=== PATIENT | female | born 1955 | race Caucasian/White ===

== ENCOUNTER 2021-02-04 13:25 | Inpatient (IN) | payer MEDICARE, BC ==
[2021-02-04] MEDS ORDERED: SODIUM CHLORIDE 0.9% 1,000 ML IV STA (14:31)
[2021-02-04 15:03] LABS: Basophils % (A) 0 %; Eosinophils % (A) 0 %; HCT 37.8 % (34.0-46.0); Lymphocytes # (A) 1.4 k/uL (1.0-4.8); Lymphocytes % (A) 14 %; MCH 31.9 pg (25.0-35.0); MCHC 31.8 g/dL (31.0-37.0); MCV 100.3 fL (80.0-100.0); Mean Platelet Volume 7.2; Monocytes # (A) 0.5 k/uL (0-1.0); Monocytes % (A) 5 %; Neutrophils % (A) 80 %; Platelet Count 322 k/uL (150-450); RBC 3.77 m/uL (3.80-5.40); RDW 12.8 % (11.5-15.5); WBC 10.1 k/uL (3.8-10.6)
[2021-02-04 15:14] LABS: ALT 29 U/L (4-34); AST 34 U/L (14-36); Acetaminophen <10.0 ug/mL; African American GFR (CKD) 78 (>60 ml/min/1.73 sqM); Albumin 3.8 g/dL (3.5-5.0); Alcohol <10 mg/dL; Alkaline Phosphatase 115 U/L (38-126); Anion Gap 11 mmol/L; Blood Urea Nitrogen 13 mg/dL (7-17); Calcium 8.8 mg/dL (8.4-10.2); Carbon Dioxide 17 mmol/L (22-30); Chloride 107 mmol/L (98-107); Glucose 92 mg/dL (74-99); Magnesium 2.2 mg/dL (1.6-2.3); Non-African American GFR(CKD) 68 (>60 ml/min/1.73 sqM); Potassium 3.8 mmol/L (3.5-5.1); Salicylate <1.0 mg/dL; Sodium 135 mmol/L (137-145); Total Bilirubin 0.8 mg/dL (0.2-1.3); Total Protein 6.7 g/dL (6.3-8.2)
--- NOTE | 2021-02-04 16:04 | ED ---
General Adult HPI - General Chief complaint: Overdose Stated complaint: Possible overdose on medication Time Seen by Provider: 02/04/21 13:50 Source: patient, family, RN notes reviewed Mode of arrival: wheelchair Limitations: physical limitation - History of Present Illness Initial comments: This a 65 year old female presents emergency Department with daughter chief complaint of drug overuse. Patient states that she has been taking more medication than she should've last couple months. She primary has been using her Prozac and Lamictal which she's not exactly sure of how much she's been taking and what she's been taking. She states she's been taken it because it was giving her the feeling of getting high. She has a long history of drug abuse. Patient states she's not been drinking alcohol recently. She states she's been abusing drugs for this reason. Denies any self-harm. Patient denies suicidal or homicidal she states that she is very shaky, unsteady on her feet unable to ambulate now. - Related Data Home Medications Medication Instructions Recorded Confirmed Atorvastatin [Lipitor] 80 mg PO DAILY 02/04/21 02/04/21 FLUoxetine HCL [PROzac] 40 mg PO DAILY 02/04/21 02/04/21 OLANZapine [ZyPREXA] 5 mg PO HS 02/04/21 02/04/21 Promethazine [Phenergan] 25 mg PO Q8H PRN 02/04/21 02/04/21 Topiramate [Topamax] 50 mg PO DAILY 02/04/21 02/04/21 buPROPion SR [Wellbutrin SR] 150 mg PO BID 02/04/21 02/04/21 lamoTRIgine [LaMICtal] 200 mg PO DAILY 02/04/21 02/04/21 traZODone HCL 50 mg PO HS PRN 02/04/21 02/04/21 Allergies Allergy/AdvReac Type Severity Reaction Status Date / Time codeine AdvReac Itching Verified 02/04/21 15:00 Review of Systems ROS Statement: Those systems with pertinent positive or pertinent negative responses have been documented in the HPI. ROS Other: All systems not noted in ROS Statement are negative. Past Medical History Past Medical History: COPD, Myocardial Infarction ([place]), Pneumonia Additional Past Medical History / Comment(s): Bipolar disorder, alcoholism, chronic anxiety, chronic depression Last Myocardial Infarction Date:: 05/2016 History of Any Multi-Drug Resistant Organisms: None Reported Past Surgical History: Back Surgery, Heart Catheterization With Stent, Pacemaker Additional Past Surgical History / Comment(s): Back surgery for lumbar disc disease, left wrist surgery, Past Anesthesia/Blood Transfusion Reactions: No Reported Reaction Date of Last Stent Placement:: 05/2016 Type of Cardiac Device: Permanent Pacemaker Device Placement Date:: 08/2016 Past Psychological History: Anxiety, Bipolar, Depression Smoking Status: Current every day smoker Past Alcohol Use History: Abuse, Daily Past Drug Use History: Cocaine, Prescription Drug Abuse - Past Family History Daughter(s) Additional Family Medical History / Comment(s): none Father Family Medical History: Unable to Obtain Mother Family Medical History: Hypertension General Exam General appearance: alert, in no apparent distress Head exam: Present: atraumatic, normocephalic, normal inspection Eye exam: Present: normal appearance, PERRL, EOMI. Absent: scleral icterus, conjunctival injection, periorbital swelling ENT exam: Present: normal exam, normal oropharynx, mucous membranes moist Neck exam: Present: normal inspection, full ROM. Absent: tenderness, meningismus, lymphadenopathy Respiratory exam: Present: normal lung sounds bilaterally. Absent: respiratory distress, wheezes, rales, rhonchi, stridor Cardiovascular Exam: Present: regular rate, normal rhythm, normal heart sounds. Absent: systolic murmur, diastolic murmur, rubs, gallop, clicks Neurological exam: Present: alert, oriented X3, CN II-XII intact, reflexes normal, other (Tremulous). Absent: motor sensory deficit Psychiatric exam: Present: anxious Skin exam: Present: warm, dry, intact, normal color. Absent: rash Course Vital Signs 02/04/21 02/04/21 02/04/21 13:27 17:25 18:22 Temperature 97.4 F L Pulse Rate 60 60 60 Pulse Rate [ Right Supine Pulse Oximetery ] Respiratory 18 16 18 Rate Blood Pressure 84/31 72/57 94/63 Blood Pressure [Right Arm Supine] O2 Sat by Pulse 93 L 95 95 Oximetry 02/04/21 02/04/21 02/05/21 20:00 22:00 00:00 Temperature 98.6 F 99.1 F Pulse Rate Pulse Rate [ 84 60 62 Right Supine Pulse Oximetery ] Respiratory 20 20 20 Rate Blood Pressure Blood Pressure 88/68 80/50 82/64 [Right Arm Supine] O2 Sat by Pulse 96 97 96 Oximetry 02/05/21 02/05/21 02/05/21 01:24 02:00 04:00 Temperature 99.4 F Pulse Rate Pulse Rate [ 60 60 60 Right Supine Pulse Oximetery ] Respiratory 20 20 20 Rate Blood Pressure Blood Pressure 85/59 88/60 [Right Arm Supine] O2 Sat by Pulse 96 97 Oximetry EKG Findings - EKG Comments: EKG Findings:: EKG performed at 13:38 atrial paced rhythm with a rate of 68 IN 172 QRS 88 QT / QTC 442/442 Medical Decision Making - Medical Decision Making 65-year-old presented emergency department for medication overuse. Patient is attempting to get high -using her drugs. Patient continues to have unsteady gait, shakiness, persistent hypotension. Patient we given fluid bolus, will be admitted for further evaluation and treatment with close monitoring, psychiatric evaluation. - Lab Data Result diagrams: 02/04/21 14:59 02/04/21 14:59 Lab Results 02/04/21 02/04/21 02/04/21 Range/Units 14:59 14:59 16:58 WBC 10.1 (3.8-10.6) k/uL RBC 3.77 L (3.80-5.40) m/uL Hgb 12.0 (11.4-16.0) gm/dL Hct 37.8 (34.0-46.0) % MCV 100.3 H (80.0-100.0) fL MCH 31.9 (25.0-35.0) pg MCHC 31.8 (31.0-37.0) g/dL RDW 12.8 (11.5-15.5) % Plt Count 322 (150-450) k/uL MPV 7.2 Neutrophils % 80 % Lymphocytes % 14 % Monocytes % 5 % Eosinophils % 0 % Basophils % 0 % Neutrophils # 8.0 H (1.3-7.7) k/uL Lymphocytes # 1.4 (1.0-4.8) k/uL Monocytes # 0.5 (0-1.0) k/uL Eosinophils # 0.0 (0-0.7) k/uL Basophils # 0.0 (0-0.2) k/uL Sodium 135 L (137-145) mmol/L Potassium 3.8 (3.5-5.1) mmol/L Chloride 107 (98-107) mmol/L Carbon Dioxide 17 L (22-30) mmol/L Anion Gap 11 mmol/L BUN 13 (7-17) mg/dL Creatinine 0.89 (0.52-1.04) mg/dL Est GFR (CKD-EPI)AfAm 78 (>60 ml/min/1.73 sqM) Est GFR (CKD-EPI)NonAf 68 (>60 ml/min/1.73 sqM) Glucose 92 (74-99) mg/dL Calcium 8.8 (8.4-10.2) mg/dL Magnesium 2.2 (1.6-2.3) mg/dL Total Bilirubin 0.8 (0.2-1.3) mg/dL AST 34 (14-36) U/L ALT 29 (4-34) U/L Alkaline Phosphatase 115 (38-126) U/L Total Protein 6.7 (6.3-8.2) g/dL Albumin 3.8 (3.5-5.0) g/dL Salicylates <1.0 mg/dL Acetaminophen <10.0 ug/mL Serum Alcohol <10 mg/dL Coronavirus (PCR) Not Detected (Not Detectd) Disposition Clinical Impression: Selective serotonin re-uptake inhibitor overdose, Hypotension, Unsteady gait, Coarse tremors Disposition: ADMITTED IP TO THIS [facility] Condition: Fair Time of Disposition: 16:58
[2021-02-04] MEDS ORDERED: SODIUM CHLORIDE 0.9% 1,000 ML IV ONE (16:32)
[2021-02-04] MEDS ORDERED: NALOXONE 0.4 MG/ML 1 ML VIAL IV PRN (16:58)
--- NOTE | 2021-02-04 17:24 | XR ---
EXAMINATION TYPE: XR chest 2V DATE OF EXAM: 02/04/2021 COMPARISON: 01/20/2019 HISTORY: Chest pressure TECHNIQUE: 2 views FINDINGS: Heart is normal. Lungs are clear of consolidation. There are no hilar masses. Costophrenic angles are clear. There is left axillary pacemaker. IMPRESSION: No active cardiopulmonary disease. No adverse change.
[2021-02-04] MEDS: SODIUM CHLORIDE 0.9% 1,000 ML IV SCH (18:03)
[2021-02-05] MEDS: SODIUM CHLORIDE 0.9% 1,000 ML IV SCH ×4 (02:00→20:32)
[2021-02-05] MEDS ORDERED: SODIUM CHLORIDE 0.9% 500 ML 500 ML IV ONE (05:36)
[2021-02-05] MEDS ORDERED: PROMETHAZINE 25 MG TAB PO PRN (06:49)
[2021-02-05] MEDS: TOPIRAMATE 25 MG TAB PO SCH (09:15)
[2021-02-05] MEDS: FLUoxetine HCL 20 MG CAP PO SCH (09:15)
[2021-02-05] MEDS: lamoTRIgine 100 MG TAB PO SCH (09:15)
[2021-02-05] MEDS: ATORVASTATIN 80 MG TAB PO SCH (09:16)
[2021-02-05] MEDS: FAMOTIDINE 20 MG/2 ML VIAL IV SCH ×2 (09:16→20:15)
[2021-02-05] MEDS: ACETAMINOPHEN TAB 500 MG TAB PO PRN (09:17)
[2021-02-05] MEDS: HEPARIN SODIUM,PORCINE/PF 5,000 UNIT/0.5 ML SYRINGE SQ SCH ×2 (09:18→20:14)
[2021-02-05] MEDS: NICOTINE 14MG/24HR PATCH TRANSDERM SCH (09:18)
[2021-02-05] MEDS: buPROPion SR 150 MG TABLET.ER PO SCH ×2 (10:06→20:14)
[2021-02-05 16:17] VITALS: RESP 18
--- NOTE | 2021-02-05 18:45 | HP ---
HISTORY AND PHYSICAL CHIEF COMPLAINT: Change in mental status. HISTORY OF PRESENT ILLNESS: This 65-year-old woman with a past medical history of COPD, myocardial infarction, pneumonia, history of bipolar, alcoholism, chronic anxiety, living in a living facility was apparently had no patient apparently taking medications on her own without any supervision. The family was concerned that the patient is doubling up on medications and the patient was taken to [facility] with complaints of change in mental status, hypotension also. The patient's p.o. intake also appears to be lower. With IV fluids, the patient was improving. Patient was shaky, unsteady and unable to ambulate yesterday but today the patient is feeling slightly better. There is no history of fever, rigors or chills. PAST MEDICAL HISTORY: History of COPD, myocardial infarction, pneumonia, bipolar, alcoholism, chronic anxiety, history of substance abuse. MEDICATIONS: Home medications are trazodone, Lamictal, Wellbutrin, Topamax, Phenergan, Zyprexa, Prozac, Lipitor, Habitrol, Tylenol. ALLERGIES: CODEINE. FAMILY HISTORY: Family history, social history and review of systems could not be taken because of the patient's change in mental status. PHYSICAL EXAMINATION: Patient is conscious but confused. Pulse 60, blood pressure 102-52, respiration 18, temperature 98.7, pulse ox 94% on room air. HEENT: Conjunctivae normal. Oral mucosa dry. Neck: No JVD. CARDIOVASCULAR: S1, S2. RESPIRATIONS: Breath sounds diminished in the bases. No rhonchi. No crackles. ABDOMEN: Soft, nontender. LEGS are no edema. No swelling. NERVOUS SYSTEM: As mentioned earlier. Moves all four limbs. No focal motor or sensory deficits. SKIN: No ulcer, no rashes and no bleeding. JOINTS: No active deforming arthropathy. LABS: WBC 10.1, hemoglobin is 12, sodium 135, potassium normal and CO2 17. ASSESSMENT: 1. Change in mental status, acute metabolic encephalopathy, secondary to possible drug overdosage accident. 2. Hyponatremia. 3. Severe dehydration with hypovolemic shock present on admission. 4. Anxiety, bipolar depression. 5. History of chronic obstructive pulmonary disease. 6. History of myocardial infarction. 7. History of bipolar. 8. History of alcoholism. 9. History of chronic anxiety. 10.History of depression. 11.History of back surgery. 12.History of coronary artery disease, stent. 13.History of permanent pacemaker. 14.History of ETOH abuse. 15.History of cocaine and substance abuse previously. 16.FULL CODE. RECOMMENDATIONS AND DISCUSSION: This 65-year-old woman who presented with multiple complex medical issues, we will monitor the patient closely. Continue the current medications, symptomatic treatment. I recommend continued IV fluids. Troponins are negative. The EKG showed diffuse ST-T changes. I would recommend a 2D echo with Doppler and cardiology evaluation in progress. Prognosis guarded because of multiple complex medical issues. Further recommendations to follow. It is also advisable that this patient should not take her current medications herself, it has to be monitored and dispensed and supervised strictly because of the patient's extensive above mentioned history. Once again, the prognosis guarded. Further recommendations to follow. See orders for details. MMKASHIFL / ROWENAN: [id number] / MTDD
[2021-02-05] MEDS ORDERED: OLANZapine 5 MG TAB PO SCH (21:00)
[2021-02-06 00:45] LABS: Appearance,Urine Clear (Clear); Bilirubin,Urine Negative (Negative); Blood,Urine Negative (Negative); Color,Urine Yellow; Glucose,Urine (UA) Negative (Negative); Ketones,Urine Negative (Negative); Leukocyte Esterase,Urine Negative (Negative); Nitrite,Urine Negative (Negative); Protein,Urine Negative (Negative); Specific Gravity,Urine 1.008 (1.001-1.035)
[2021-02-06 00:55] LABS: Amphetamine Screen,Urine Not Detected (NotDetected); Barbiturate Screen,Urine Not Detected (NotDetected); Benzodiazepines Screen,Urine Detected (NotDetected); Cocaine Screen,Urine Not Detected (NotDetected); Methadone Screen, Urine Not Detected (NotDetected); Opiate Screen,Urine Not Detected (NotDetected); Oxycodone Screen, Urine Not Detected (NotDetected); Phencyclidine Screen,Urine Not Detected (NotDetected); Tricyclic Antidepressant,Urine Not Detected (NotDetected); Urn Cannabinoid Scrn Not Detected (NotDetected)
[2021-02-06 04:17] VITALS: PULSE 60
[2021-02-06] MEDS: ACETAMINOPHEN TAB 500 MG TAB PO PRN (04:20)
[2021-02-06 06:04] LABS: Basophils % (A) 0 %; Eosinophils % (A) 1 %; HCT 35.1 % (34.0-46.0); HGB 11.2 gm/dL (11.4-16.0); Lymphocytes # (A) 1.6 k/uL (1.0-4.8); Lymphocytes % (A) 31 %; MCH 33.1 pg (25.0-35.0); MCHC 31.8 g/dL (31.0-37.0); Macrocytosis Slight; Mean Platelet Volume 7.4; Monocytes # (A) 0.3 k/uL (0-1.0); Monocytes % (A) 5 %; Neutrophils # (A) 3.2 k/uL (1.3-7.7); Neutrophils % (A) 61 %; Platelet Count 318 k/uL (150-450); RBC 3.38 m/uL (3.80-5.40); RDW 13.5 % (11.5-15.5); WBC 5.2 k/uL (3.8-10.6)
[2021-02-06 06:18] LABS: ALT 23 U/L (4-34); AST 28 U/L (14-36); African American GFR (CKD) >90 (>60 ml/min/1.73 sqM); Alkaline Phosphatase 93 U/L (38-126); Anion Gap 5 mmol/L; Blood Urea Nitrogen 8 mg/dL (7-17); Calcium 8.4 mg/dL (8.4-10.2); Carbon Dioxide 18 mmol/L (22-30); Chloride 115 mmol/L (98-107); Glucose 87 mg/dL (74-99); Non-African American GFR(CKD) 85 (>60 ml/min/1.73 sqM); Potassium 4.2 mmol/L (3.5-5.1); Sodium 138 mmol/L (137-145); Total Bilirubin 0.6 mg/dL (0.2-1.3); Total Protein 5.9 g/dL (6.3-8.2)
[2021-02-06] MEDS: NICOTINE 14MG/24HR PATCH TRANSDERM SCH (07:59)
[2021-02-06] MEDS: ATORVASTATIN 80 MG TAB PO SCH (08:00)
[2021-02-06] MEDS: lamoTRIgine 100 MG TAB PO SCH (08:00)
[2021-02-06] MEDS: buPROPion SR 150 MG TABLET.ER PO SCH (08:00)
[2021-02-06] MEDS: FLUoxetine HCL 20 MG CAP PO SCH (08:00)
[2021-02-06] MEDS: HEPARIN SODIUM,PORCINE/PF 5,000 UNIT/0.5 ML SYRINGE SQ SCH (08:00)
[2021-02-06] MEDS: TOPIRAMATE 25 MG TAB PO SCH (08:00)
[2021-02-06] MEDS ORDERED: FAMOTIDINE 20 MG TAB PO SCH (09:00)
--- NOTE | 2021-02-06 09:16 | CONS ---
CONSULTATION HISTORY OF PRESENT ILLNESS: This is a 65-year-old lady with history of coronary artery disease status post angioplasty, COPD, bipolar mood disorder, history of a permanent pacemaker, who used to live in [place] and states that she has recently moved to [place], currently living in a long-term facility and has been taking too many medications on her own without supervision that is why she comes in and is admitted. Her predominant symptom is in the form of unstable gait, feeling shaky and feeling unwell. Cardiology had been consulted because of cardiac history. PAST MEDICAL HISTORY: Significant for COPD, coronary artery disease, bipolar mood disorder, alcoholism, chronic anxiety and substance abuse. MEDICATIONS: At home included: Trazodone, Lamictal, Wellbutrin, Phenergan, Zyprexa, Prozac, Lipitor, Habitrol and Tylenol. ALLERGIC: TO CODEINE. FAMILY HISTORY: Negative for premature coronary artery disease. SOCIAL HISTORY: Denies current smoking. REVIEW OF SYSTEMS: HEENT is unremarkable. CARDIAC as described above. RESPIRATORY is negative. GI negative. GENITOURINARY negative. ALLERGY/IMMUNOLOGY: Negative. SKIN negative. MUSCULOSKELETAL negative. ENDOCRINE negative. DERM: Negative. CONSTITUTIONAL: Negative. ONCOLOGICAL negative. PSYCH significant for medication overdose. EKG shows paced rhythm. EXAM: She is comfortable at rest. Vital signs are stable. NECK: There is no jugular venous distention. Carotid upstroke is normal. There is no bruit. CHEST exam reveals good air entry bilaterally. HEART exam reveals first and second heart sounds. No gallop. No murmur. ABDOMEN is soft, nontender. Examination of EXTREMITIES did not reveal any edema. Peripheral pulses are felt. LAB: Show that the troponin is negative. Potassium is 4.2, creatinine is 0.7, hemoglobin is 11.2. EKG shows paced rhythm. ASSESSMENT: 1. Known coronary artery disease status post prior angioplasty. 2. History of sick sinus syndrome, status post permanent pacemaker. 3. Metabolic encephalopathy with possible drug overdose. PLAN: I will obtain a 2D echo. Review her records from her previous [facility] m[facility] and arrange outpatient followup on discharge. MMODL / IJN: [id number] /
[2021-02-06] MEDS: SODIUM CHLORIDE 0.9% 1,000 ML IV SCH (09:47)
--- NOTE | 2021-02-06 10:56 | ECHOF ---
Referral Reason:cad MEASUREMENTS -------- HEIGHT: 157.5 cm WEIGHT: 62.6 kg BP: RVIDd: 3.2 cm (< 3.3) IVSd: 0.7 cm (0.6 - 1.1) LVIDd: 5.1 cm (3.9 - 5.3) LVPWd: 1.0 cm (0.6 - 1.1) IVSs: 1.0 cm LVIDs: 3.5 cm LVPWs: 1.4 cm LA Diam: 3.4 cm (2.7 - 3.8) LAESV Index (A-L): 23.29 ml/m Ao Diam: 2.6 cm (2.0 - 3.7) AV Cusp: 1.3 cm (1.5 - 2.6) LA Diam: 4.1 cm (2.7 - 3.8) MV EXCURSION: 21.518 mm (> 18.000) MV EF SLOPE: 91 mm/s (70 - 150) EPSS: 0.7 cm MV E Dylon: 0.81 m/s MV DecT: 234 ms MV A Dylon: 0.77 m/s MV E/A Ratio: 1.05 RAP: 10.00 mmHg RVSP: 59.42 mmHg FINDINGS -------- Paced rhythm. This was a technically good study. LV size, wall thickness and systolic function are normal, with an EF greater than 55%. The left mita tricular size is normal. The right ventricle is normal in size. The left atrial size is normal. The right atrial size is normal. The aortic valve is trileaflet, and appears structurally normal. No aortic stenosis or regurgitation. Mild mitral regurgitation is present. Moderate tricuspid regurgitation present. There is moderate pulmonary hypertension. The right mita tricular systolic pressure, as measured by Doppler, is 59.42mmHg. Trace/mild (physiologic) pulmonic regurgitation. Echo free space represents a pericardial fat pad. CONCLUSIONS -------- 1. LV size, wall thickness and systolic function are normal, with an EF greater than 55%. 2. The left ventricular size is normal. 3. The right ventricle is normal in size. 4. The left atrial size is normal. 5. The right atrial size is normal. 6. The aortic valve is trileaflet, and appears structurally normal. No aortic stenosis or regurgitati on. 7. Mild mitral regurgitation is present. 8. Moderate tricuspid regurgitation present. 9. There is moderate pulmonary hypertension. 10. The right ventricular systolic pressure, as measured by Doppler, is 59.42mmHg. 11. Trace/mild (physiologic) pulmonic regurgitation. 12. Echo free space represents a pericardial fat pad. ETHNOGRAPHIC MATERIALS CONSERVATOR: Jennifer Holloway RDCS
[2021-02-06 11:07] VITALS: BP 99/49; TEMP 97.9
--- NOTE | 2021-02-09 10:41 | P.DS ---
Providers Date of admission: 02/04/21 17:00 Expected date of discharge: 02/06/21 Attending physician: Faviola Goldman Consults: 02/05/21 17:11 Consult Physician Routine Consulting Provider: Claudio Palafox Consult Reason/Comments: cad Do you want consulting provider notified?: Yes Primary care physician: Physician Nonstaff Hospital Course: Final Diagnosis change in mental status, acute metabolic encephalopathy, secondary to possible drug overdose accidentally hyponatremia severe dehydration with hypovolemic shock, present on admission Anxiety, bipolar depression History of chronic obstructive pulmonary disease History of myocardial infarction History of alcoholism History of chronic anxiety History of depression History of coronary artery disease, stent history of permanent pacemaker History of ETOH abuse History of cocaine and substance abuse previously full code Discharge disposition Patient is being discharged in a stable condition with guarded prognosis to [facility] where she resides. Patient will follow-up with her primary care provider in the outpatient setting upon discharge. Total time taken is greater than 35 minutes. Hospital course This is a 65-year-old female who recently admitted with change in mental status possible secondary to SSRI taken in excess and was being closely monitored. Patient has been giving herself her own medications and having mistakes in taking extra and forgetting some and is having more difficulty with this and will require 24/7 supervision with medication administration and will have a licensed person dispense medications in the outpatient setting. This was discussed with daughter as well who is arranging this for [facility]. Currently no reports of chest pain, shortness of breath, or palpitations. Patient is afebrile. No reports of nausea or vomiting and patient is tolerating diet. Patient will be going to [facility] today. Her prognosis. Physical exam: GENERAL: The patient is alert and oriented x3, Well developed, well nourished. HEENT: Pupils are round and equally reacting to light. EOMI. No scleral icterus. No conjunctival pallor. Normocephalic, atraumatic. No pharyngeal erythema. No thyromegaly. CARDIOVASCULAR: S1 and S2 muffled PULMONARY: Diminished breath sounds bilaterally with no wheezing or crackles. ABDOMEN: Soft,nontender, normoactive bowel sounds. No palpable organomegaly. Ostomy noted with brown stools no bleeding noted MUSCULOSKELETAL: No joint swelling or deformity. EXTREMITIES: No cyanosis, clubbing, no pedal edema noted NEUROLOGICAL: Gross neurological examination did not reveal any focal deficits. SKIN: No rashes. Please refer to medication reconciliation sheet for a list of medications. Patient Condition at Discharge: Fair Plan - Discharge Summary Discharge Rx Participant: No New Discharge Prescriptions: New Nicotine 14Mg/24Hr Patch [Habitrol] 1 patch TRANSDERM DAILY patch Acetaminophen Tab [Tylenol] 500 mg PO Q6HR PRN tab PRN Reason: Fever and/ or Mild Pain Continue lamoTRIgine [LaMICtal] 200 mg PO DAILY Promethazine [Phenergan] 25 mg PO Q8H PRN PRN Reason: Nausea FLUoxetine HCL [PROzac] 40 mg PO DAILY buPROPion SR [Wellbutrin SR] 150 mg PO BID traZODone HCL 50 mg PO HS PRN PRN Reason: Insomnia Topiramate [Topamax] 50 mg PO DAILY OLANZapine [ZyPREXA] 5 mg PO HS Atorvastatin [Lipitor] 80 mg PO DAILY Discharge Medication List Atorvastatin [Lipitor] 80 mg PO DAILY 02/04/21 [History] FLUoxetine HCL [PROzac] 40 mg PO DAILY 02/04/21 [History] OLANZapine [ZyPREXA] 5 mg PO HS 02/04/21 [History] Promethazine [Phenergan] 25 mg PO Q8H PRN 02/04/21 [History] Topiramate [Topamax] 50 mg PO DAILY 02/04/21 [History] buPROPion SR [Wellbutrin SR] 150 mg PO BID 02/04/21 [History] lamoTRIgine [LaMICtal] 200 mg PO DAILY 02/04/21 [History] traZODone HCL 50 mg PO HS PRN 02/04/21 [History] Acetaminophen Tab [Tylenol] 500 mg PO Q6HR PRN tab 02/05/21 [Rx] Nicotine 14Mg/24Hr Patch [Habitrol] 1 patch TRANSDERM DAILY patch 02/05/21 [Rx] Follow up Appointment(s)/Referral(s): Nonstaff,Physician [Primary Care Provider] - 1-2 days (Primary care providers that are recommended: Dillon Murillo Canto, Bhalla.) Patient Instructions/Handouts: Benzodiazepine Abuse (DC) Activity/Diet/Wound Care/Special Instructions: Patient is returning to [facility] Patient will need someone other than herself to dispense medications as scheduled and prescribed - family hiring staff at [facility] to administer medications Referral has been sent to [facility] - they will contact you and once you are seen by a provider from [facility], [facility] ([phone]) will begin seeing you as well continue current diet Discharge Disposition: TRANSFER TO SNF/ECF
== END 2021-02-06 15:42 | DRG 917 ==
LOC: EC 13:25 → 3SCARD 17:00
PROVIDERS: ADMIT Hospitalist; ATTEND Hospitalist
DX: T42.4X1A Poisoning by benzodiazepines, accidental (unintentional), initial encounter (principal); G92.8 Other toxic encephalopathy; R57.1 Hypovolemic shock; G93.41 Metabolic encephalopathy; E87.1 Hypo-osmolality and hyponatremia; F31.30 Bipolar disorder, current episode depressed, mild or moderate severity, unspecified; Z20.822 Contact with and (suspected) exposure to COVID-19; I49.5 Sick sinus syndrome; J44.9 Chronic obstructive pulmonary disease, unspecified; I27.29 Other secondary pulmonary hypertension; I08.1 Rheumatic disorders of both mitral and tricuspid valves; I25.10 Atherosclerotic heart disease of native coronary artery without angina pectoris; G25.2 Other specified forms of tremor; F41.9 Anxiety disorder, unspecified; E86.0 Dehydration; F17.210 Nicotine dependence, cigarettes, uncomplicated; I25.2 Old myocardial infarction; Z95.0 Presence of cardiac pacemaker; Z95.5 Presence of coronary angioplasty implant and graft; Z88.5 Allergy status to narcotic agent; Z87.01 Personal history of pneumonia (recurrent); Z86.59 Personal history of other mental and behavioral disorders
CPT/HCPCS: 36415; 71046; 80053; 80143; 80175; 80179; 80306; 80320; 81003; 83605; 83735; 84484; 85025; 87635; 93005; 93306; 94760; 96360; 99285

== ENCOUNTER → 2023-01-15 | Outpatient (CLI) | payer MEDICARE, BC | END | disposition home or self-care (01) | LOC: LABPAT 14:17 | PROVIDERS: ATTEND Orthopaedic Surgery | DX: Z01.812 Encounter for preprocedural laboratory examination (principal); Z22.322 Carrier or suspected carrier of Methicillin resistant Staphylococcus aureus | CPT/HCPCS: 86850; 86900; 86901; 87070 ==

== ENCOUNTER 2023-01-18 11:24 | Inpatient (IN) | payer MEDICARE, BC ==
[~2023-01-18 11:24] MED LIST: ACETAMINOPHEN TAB 500 MG TAB PO PRN; DEXAMETHASONE SOD PHOSPHATE 10 MG/ML 1 ML VIAL IV PRN; DEXAMETHASONE SOD PHOSPHATE 4 MG/ML 1 ML VIAL IV ONE; DOCUSATE 100 MG CAP PO PRN; FAMOTIDINE 20 MG/2 ML VIAL IVP PRN; HYDROmorphone 0.5 MG/0.5 ML SYRINGE IVP PRN; KETOROLAC 15 MG/ML 1 ML VIAL IVP PRN; LIDOCAINE 1% (10MG/ML) FOR IV START INTRADERMA PRN; MIDAZOLAM 2 MG/2 ML VIAL IV PRN; ONDANSETRON 4 MG/2 ML VIAL IVP ONE; ONDANSETRON 4 MG/2 ML VIAL IVP PRN; ROPIVACAINE/EPI/CLONIDINE/KET 50 ML SYRINGE MISCELLANE PRN; TRANEXAMIC 1,000 MG/100ML-NACL 1,000 MG in SALINE 1 100ML.BAG IV PRN; TRANEXAMIC 1,000 MG/100ML-NACL 1,000 MG in SALINE 1 100ML.BAG IVPB PRN; oxyCODONE ER 10 MG TAB.ER.12H PO PRN
[2023-01-18] MEDS ORDERED: MIDAZOLAM 2 MG/2 ML VIAL IVP ONE (13:04)
[2023-01-18] MEDS: LACTATED RINGERS 1,000 ML IV SCH ×2 (13:12→17:52)
--- NOTE | 2023-01-18 13:12 | P.ANPRN ---
Procedure Note - Anesthesia - Nerve Block Performed Right Alejandro Single Time Out Performed: Yes ([id number]) Date of Procedure: 01/18/23 Procedure Start Time: 13:07 Procedure Stop Time: 13:12 Location of Patient: PreOp Indication: Acute Post-Operative Pain, Requested by Surgeon Sedation Type: Sedate with meaningful contact maintained Preparation: Sterile Prep Position: Supine Catheter: None Needle Types: Pajunk Needle Gauge: 21 Ultrasound used to visualize needle placement: Yes Ultrasound used to observe medication spread: Yes Injectate: 0.5% Ropivacaine (see comment for volume) (20 ml) Blood Aspirated: No Pain Paresthesia on Injection Noted: No Resistance on Injection: Normal Image Stored and Saved: Yes Events: Uneventful and Well Tolerated
[2023-01-18] MEDS ORDERED: ROPIVACAINE 5 MG/ML 30 ML VIAL ONE (13:48)
[2023-01-18] MEDS ORDERED: TRANEXAMIC 1,000 MG/100ML-NACL PREMIX BAG ONE (13:48)
[2023-01-18] MEDS ORDERED: ROCURONIUM 10 MG/ML (5 ML VIAL) IV ONE (13:48)
[2023-01-18] MEDS ORDERED: PHENYLEPHRINE 10 MG/ML VIAL ONE (13:48)
[2023-01-18] MEDS ORDERED: NEOSTIGMINE 1 MG/ML 10 ML VIAL ONE (13:48)
[2023-01-18] MEDS ORDERED: GLYCOPYRROLATE 0.2 MG/ML 2 ML VIAL ONE (13:48)
[2023-01-18] MEDS ORDERED: LIDOCAINE 1% INJ 10MG/ML (20 ML MDV) ONE (13:48)
[2023-01-18] MEDS ORDERED: fentaNYL (PF) 50 MCG/ML 2 ML AMP ONE (13:48)
[2023-01-18] MEDS ORDERED: PROPOFOL 10 MG/ML 20 ML VIAL IV ONE (13:48)
[2023-01-18] MEDS ORDERED: SUCCINYLCHOLINE CHLORIDE 200 MG/10 ML VIAL IV ONE (13:48)
[2023-01-18] MEDS ORDERED: SODIUM CHLORIDE 0.9% 200 ML with EPINEPHrine 2 MG IV ONE ×2 (14:48)
[2023-01-18] MEDS ORDERED: EPINEPHrine 2 MG in SODIUM CHLORIDE 0.9% 200 ML IV ONE (15:06)
[2023-01-18] MEDS ORDERED: LACTATED RINGERS 1,000 ML IV ONE ×2 (15:42→17:02)
[2023-01-18] MEDS ORDERED: ONDANSETRON 4 MG/2 ML VIAL IVP PRN (16:36)
[2023-01-18] MEDS ORDERED: hydrOXYzine pamoate 25 MG CAP PO PRN (16:36)
[2023-01-18] MEDS ORDERED: MAGNESIUM HYDROXIDE 2,400 MG/30 ML CUP PO PRN (16:36)
[2023-01-18] MEDS ORDERED: NALOXONE 0.4 MG/ML 1 ML VIAL IV PRN (16:36)
--- NOTE | 2023-01-18 16:36 | P.OP ---
Date of Procedure: 01/18/23 Preoperative Diagnosis: 1. Severe right hip osteoarthritis 2. Coronary artery disease 3. History of smoking, quit prior to surgery 4. Osteopenia Postoperative Diagnosis: Same Procedure(s) Performed: 1. Right direct anterior total hip arthroplasty 2. Application of negative pressure incisional wound VAC less than 50 cm, right hip, incision measuring 15 cm Implants: 1. [place] Trident II Acetabular Cup, Size #46 2. [place] Accolade C Size # 4 Femoral Stem, Standard Offset 3. Dual Mobility OD 36 mm, ID 22.2 mm, +0 neck Anesthesia: MARYANNEA, regional Surgeon: Henry Perez Log Chain Feeder #1: Sunshine Weller Estimated Blood Loss (ml): 200 IV fluids (ml): 900 Pathology: none sent Condition: stable Disposition: PACU Indications for Procedure: I had a long discussion with the patient in the office on the potential risks and complications of an elective total hip replacement through a direct anterior approach. Risks discussed include, but are certainly not limited to, risks from anesthesia, superficial infection requiring local wound care or antibiotics, deep verónica-prosthetic joint infection and the treatment required to eradicate infection, intraoperative fracture, postoperative periprosthetic fracture, damage to local blood vessels or nerves particularly the lateral femoral cutaneous nerve, delayed wound healing requiring local wound care or possibly surgical debridement, hip dislocation, leg length discrepancy, soft tissue irritation around the total hip implant such as iliopsoas tendinitis or trochanteric bursitis, wear and osteolysis from the implants, squeaking or audible noises, groin pain, thigh pain, heterotopic ossification, stiffness, aseptic loosening of the implants, dissatisfaction with surgical outcome, need for revision surgery, DVT, PE, swelling of the operative extremity, acute coronary event, stroke, failure to thrive, and possibly loss of life or limb. The patient understands that while these are the most common complications after an elective hip replacement there are certainly other less common complications possible. They were given ample time to ask questions regarding the potential complications of a hip replacement. Following our discussion the patient provided their verbal and written consent to go forward with an elective total hip replacement. The patient has a history of prior smoking. She was counseled to quit smoking prior to elective hip surgery. The patient was able to completely quit prior to her surgery. She understands that if she resumes smoking in the perioperative period she has an increased risk of delayed wound healing and infection. She voiced her understanding of this. Operative Findings: Severe right hip arthritis with complete cartilage loss of the femoral head and acetabulum. Description of Procedure: The patient was identified in the preoperative holding area and the correct hip was marked with my initials. I reviewed the procedure and consent with the harjinder diaz. All of their questions were answered. The patient was then brought back into the operating room by anesthesia. While on the [facility] anesthesia was administered by the anesthesia team. Preoperative antibiotics and tranexamic acid were also given. After the patient was under anesthesia I examined their ankles to determine their preoperative leg length discrepancy. The skin over the anterior aspect of the hip was shaved to remove hair over the site of planned incision. Both feet and ankles were padded with webril and boots for the [place] were applied. The patient was then carefully transferred onto the [place] table. A perineal post was immediately placed. The arms were placed on arm holders and were well-padded. Both boots were secured to the spars on the [place] table. The patient was positioned so that the pelvis was centered over the post. Nonsterile drapes were applied. A timeout was performed identifying the correct patient, operative extremity, and procedure. At this point fluoroscopy was brought in to take preoperative images of the pelvis and operative hip. Using the standing AP pelvis from the office as a template, a comparable image was obtained with fluoroscopy. A metallic bar was used to create a bi-ischial line for use as a reference to leg length adjustments during the procedure. Global offset was also measured on both the operative and nonoperative leg. Fluoroscopy was then brought out and a pre-scrub using a chlorhexidine scrub brush was performed. The operative limb was then prepped and draped in the standard sterile fashion. An anterior longitudinal incision was made lateral and distal to the ASIS. The skin and subcutaneous tissues were incised sharply. The underlying tensor fascia was identified and incised in its midportion. The fascia was dissected free from the underlying muscle and the muscle belly was retracted. A blunt tipped cobra retractor was placed over the superior neck under the muscle fibers of the gluteus minimus. The deep enveloping fascia of the tensor was incised. The anterior leash of vessels were then identified and cauterized. The fascia between the rectus and the capsule was then incised and the pre-capsular fat was excised. A second Cobra was placed inferior to the neck. The interval between the rectus and iliocapsularis and the hip capsule was developed and a retractor was placed carefully over the anterior rim of the acetabulum. A T-shaped anterior capsulotomy was performed. The superior capsular leaflet was left in place in the inferior capsular flap was excised. The Cobra retractors were placed intracapsularly. We then made a femoral neck osteotomy according to preoperative and intraoperative templating and confirmed the level of the osteotomy using fluoroscopic imaging. The femoral head was removed, passed off to the back table, and sized. The superior capsular flap was excised. Retractors were placed circumferentially exposing the acetabulum. We then circumferentially debrided the acetabulum free of labrum and osteophytes. The pulvinar was removed to fully visualize the cotyloid fossa. We then sequentially reamed to achieve peripheral fit and excellent bleeding subchondral bone. The socket was thoroughly irrigated. The acetabular component was impacted into the appropriate position using fluoroscopy to guide version, inclination, and depth of insertion taking care to have a comparable image of the AP pelvis to the standing image taken in the office. An excellent press-fit was achieved and final position was confirmed using fluoroscopy. The press fit was augmented with bony cancellus dome screws. The liner was then impacted into the socket. Attention was then turned to the femur. The remnant dorsal lateral capsule was excised. The short external rotators were visible and protected. A bone hook was used to confirm appropriate translation of the trochanter away from the acetabulum. The leg was then extended and adducted and the bone hook was used to elevate the femur for broaching. On inspection of the patient's proximal femur, they appeared to have poor bone quality so I elected to proceed with cemented fixation of the femoral component. A box osteotome and blunt tipped canal sound was then utilized to gain access to the femoral canal. We then sequentially broached the femur in appropriate anteversion until torsional stability was achieved and the implant was felt to have reached the appropriate size to allow trialing. The neck cut was brought flush to the trial broach with a calcar planar. A trial neck and head were then placed onto the broach and the hip was atraumatically reduced under direct visualization. External rotation to 90 was performed to assess stability. Fluoroscopy was brought in. An AP and lateral fluoroscopic image of the proximal femur was obtained to assess position and fill of the trial broach. An AP of the pelvis was then obtained and matched to the preoperative image taken. A bi-ischial bar was then placed and measurements were taken to assess changes in length and offset. The hip was then carefully dislocated, the proximal femur was exposed, and the trial implants were removed. The proximal femur was then prepared for cementing. The canal was thoroughly irrigated with pulsatile lavage to remove blood and marrow contents. A cement restrictor was placed to a depth just distal to the tip of the final implant. Epinephrine-soaked gauze was then packed into the proximal femur. 2 bags of cement were then mixed using a centrifuge and placed into a cement gun. Anesthesia was notified that cementing was about to commence to make sure the patient was appropriately ventilated and hydrated. Once the cement had reached appropriate consistency, the cement gun was used to fill the canal in a retrograde fashion starting at the restrictor. Cement was then pressurized into the canal with a blue tipped lithographer helper. The stem was then carefully introduced into the cement taking care to guide the implant into appropriate version. The stem was held in position until the cement had fully set. All extra cement was removed while the cement was hardening. The trunnion was cleansed and the final head was tapped into place to engage the Villegas taper. The acetabulum was irrigated and visualized to be free of debris. The hip was carefully reduced. Stability was checked clinically with external rotation to 90 and there was no evidence of instability. Final fluoroscopic images were taken. The wound was then thoroughly irrigated and soaked with a dilute Betadine rinse for 3 minutes. 3 L of sterile saline was irrigated through the wound using pulsatile lavage. Local anesthetic cocktail was injected into the soft tissues around the surgical field. A deep drain was placed. The wound was then closed in layers. Due to the patient's medical history, history of smoking, and tenuous soft tissue envelope I elected to use an incisional wound VAC to help lower her risk of delayed wound healing and wound breakdown. Her incision measured 15 cm. An incisional wound VAC was applied over her closed incision, hooked up to canister, and had good seal. The drapes were taken down and the patient was carefully transferred off of the [place] table. Following removal of the boots the leg lengths felt acceptable. The patient was then taken to recovery room having tolerated the procedure well. Sunshine Weller DO is required as a skilled apartment assistant manager due to the complexity of the case for patient positioning, draping, exposure, placement of implants, closure of wound. PLAN: The patient can weight-bear as tolerated on the operative extremity. 2 doses of postoperative antibiotics. The patient will be started on Eliquis for DVT prophylaxis given her cardiac issues. Physical therapy for gait training. Discontinue drain postoperative day #1 if output is less than 100 mL per shift.
--- NOTE | 2023-01-18 17:07 | XR ---
Fluoroscopy INDICATION: Pain FINDINGS: Fluoroscopy time: 29 seconds. Total dose area product (DAP) in uGy*m?, mGy*cm? (or similar): 1.1717 Images obtained: 6. IMPRESSION: 1. Documentation of fluoroscopy.
[2023-01-18] MEDS ORDERED: SODIUM CHLORIDE 0.9% 500 ML 500 ML IV ONE (18:11)
[2023-01-18] MEDS: APIXABAN 2.5 MG TABLET PO SCH (20:20)
[2023-01-18] MEDS: SENNOSIDES-DOCUSATE SODIUM 1 EACH TAB PO SCH (20:20)
[2023-01-19] MEDS: LACTATED RINGERS 1,000 ML IV SCH ×4 (03:59→21:28)
[2023-01-19] MEDS: HYDROcodone/APAP 5-325MG 1 EACH TAB PO PRN (05:29)
[2023-01-19] MEDS ORDERED: IPRATROPIUM-ALBUTEROL 3 ML NEB INHALATION PRN (06:23)
--- NOTE | 2023-01-19 06:25 | P.CONS ---
History of Present Illness - Reason for Consult Consult date: 01/19/23 Postoperative medical evaluation - Chief Complaint Right hip replacement - History of Present Illness 67-year-old female history of COPD CAD status post stents prevent pacemaker Patient coming in for scheduled right total hip arthroplasty secondary to advanced degenerative disease failed operative management with persistent pain affecting activities of daily living Patient tolerated procedure well no immediate observed post operative complications denies any chest pain trouble breathing, patient had an episode of difficulty urinating which was relieved by straight cathing. Tolerated by mouth intake denies any nausea vomiting review of systems Pertinent positives as noted in HPI. All other systems were reviewed and are negative on exam Constitutional: No acute distress, conversant, pleasant Eyes: Anicteric sclerae, moist conjunctiva, Pupils equal round reactive to light Lungs: Clear to auscultation Clear to percussion Normal respiratory effort, no accessory muscle use Cardiovascular: Heart regular in rate and rhythm, No murmurs, gallops, or rubs No peripheral edema Abdominal: Soft Nontender, no guarding, rebound or rigidity Abdomen moving with respiration Normoactive bowel sounds Extremities: Right hip wound with wound VAC and drain surrounding skin looks clean and intact no swelling No digital cyanosis No clubbing Pedal pulses intact and symmetrical Radial pulses intact and symmetrical No calf tenderness Psychiatric: Alert and oriented to person, place and time Appropriate affect fair judgement Neuro moving all 4 extremities spontaneously Past Medical History Past Medical History: Atrial Fibrillation, COPD, GERD/Reflux, Hyperlipidemia, Myocardial Infarction (DE), Osteoarthritis (OA), Pneumonia, Seizure Disorder Additional Past Medical History / Comment(s): currently being tx. for UTI by her PCP [facility], last seizure 15 years ago secondary to etoh w/d. Last Myocardial Infarction Date:: 05/2016 History of Any Multi-Drug Resistant Organisms: None Reported Past Surgical History: Back Surgery, Heart Catheterization With Stent, Orthopedic Surgery, Pacemaker Additional Past Surgical History / Comment(s): Back surgery for lumbar disc disease, Left leg surgery with gisel. Right hip arthroplasty. Left carotid endartectomy. Past Anesthesia/Blood Transfusion Reactions: No Reported Reaction Date of Last Stent Placement:: 05/2016 Type of Cardiac Device: Permanent Pacemaker Device Placement Date:: 08/2016 Past Psychological History: Anxiety, Bipolar, Depression Smoking Status: Former smoker Past Alcohol Use History: Abuse, Daily Additional Past Alcohol Use History / Comment(s): heavy drinking for 20 yrs., pint of vodka per day, had been sober 5 years, last bout of binge drinking about 2 weeks ago Past Drug Use History: Cocaine, Prescription Drug Abuse Additional Drug Use History / Comment(s): past drug use pt states was >15 years ago. - Past Family History Daughter(s) Additional Family Medical History / Comment(s): none Father Family Medical History: Unable to Obtain Mother Family Medical History: Hypertension Medications and Allergies Home Medications Medication Instructions Recorded Confirmed Type FLUoxetine HCL [PROzac] 40 mg PO DAILY 02/04/21 01/15/23 History OLANZapine [ZyPREXA] 5 mg PO HS 02/04/21 01/15/23 History Promethazine [Phenergan] 25 mg PO Q8H PRN 02/04/21 01/15/23 History Topiramate [Topamax] 50 mg PO DAILY 02/04/21 01/15/23 History buPROPion SR [Wellbutrin SR] 200 mg PO BID 02/04/21 01/15/23 History traZODone HCL 50 mg PO HS 02/04/21 01/15/23 History Nicotine 14Mg/24Hr Patch [Habitrol] 1 patch TRANSDERM DAILY patch 02/05/21 01/18/23 Rx Albuterol Inhaler [Ventolin Hfa 1 - 2 puff INHALATION Q6H PRN 01/15/23 01/18/23 History Inhaler] Aspirin 81 mg PO DAILY 01/15/23 01/18/23 History Cholecalciferol (Vitamin D3) 125 mcg PO DAILY 01/15/23 01/15/23 History [Vitamin D3 (125 MCG = 5,000 IU)] Cyanocobalamin (Vitamin B-12) 1,000 mcg PO DAILY 01/15/23 01/15/23 History [Vitamin B-12] HYDROcodone/APAP 7.5-325MG [Dyess 1 tab PO Q8H PRN 01/15/23 01/15/23 History 7.5-325] Nitrofurantoin Monohyd/M-Cryst 100 mg PO Q12HR 01/15/23 01/15/23 History [Macrobid] Nitroglycerin Sl Tabs [Nitrostat] 0.4 mg SUBLINGUAL Q5M PRN 01/15/23 01/15/23 History Pantoprazole [Protonix] 40 mg PO DAILY 01/15/23 01/15/23 History Tiotropium Capitan [Spiriva] 18 mcg IH DAILY 01/15/23 01/18/23 History Apixaban [Eliquis] 2.5 mg PO BID #60 tab 01/18/23 Rx Docusate [Colace] 100 mg PO BID #30 capsule 01/18/23 Rx HYDROcodone/APAP 5-325MG [Dyess 1 - 2 tab PO Q6HR PRN #32 tab 01/18/23 Rx 5-325] Omeprazole 40 mg PO DAILY #30 cap 01/18/23 Rx Allergies Allergy/AdvReac Type Severity Reaction Status Date / Time codeine AdvReac Itching Verified 01/18/23 11:57 Physical Exam Vitals: Vital Signs Temp Pulse Resp BP Pulse Ox 01/19/23 00:45 98.4 F 61 18 106/48 96 01/18/23 20:17 94 L 01/18/23 19:20 98.4 F 60 18 96/57 96 01/18/23 18:08 97.7 F 60 18 81/50 98 01/18/23 17:29 64 17 121/68 97 01/18/23 17:20 63 19 96/60 97 01/18/23 17:05 66 17 105/48 93 L 01/18/23 16:51 60 19 94/56 91 L 01/18/23 16:36 60 18 116/74 100 01/18/23 16:21 97 F L 76 17 96/57 100 01/18/23 13:22 60 16 105/56 99 01/18/23 12:00 97.5 F L 62 16 114/61 94 L Intake and Output 01/18/23 01/18/23 01/19/23 14:59 22:59 06:59 Intake Total 1050 1301 Output Total 451 514 6266 Balance 850 393 -1850 Intake: IV 1050 1301 Output: Drainage 110 Right Lateral Hip 110 Urine 1000 Uretheral (Moreno) 700 Post Void Residual 908 740 Estimated Blood Loss 200 Other: Voiding Method Bedpan # Voids 1 Weight 74.6 kg 74.6 kg Assessment and Plan Assessment: Right total hip arthroplasty postoperative day 1 Further management pain control and DVT prophylaxis per primary surgical team Wound VAC in place Currently on Eliquis 2.5 mg twice a day by mouth for DVT prophylaxis COPD DuoNeb's when necessary every 4 hours Encouraged to use incentive spirometry Supplemental oxygen as needed Continue with Spiriva History of CAD Resume aspirin once cleared by surgery Full code GI prophylaxis Protonix 40 mg daily Bowel regimen with senna S daily Stable from medical standpoint Check CBC BMP in the morning Thank you for this consultation
--- NOTE | 2023-01-19 06:27 | P.PN ---
Subjective Progress Note Date: 01/19/23 The patient is doing relatively well this morning. She has some discomfort in her right hip is otherwise without complaints. She denies chest pain or shortness of breath. She denies feeling lightheaded. She's been up to the bathroom on her hip. Objective - Vital Signs Vital signs: Vital Signs Temp 98.4 F 01/19/23 00:45 Pulse 61 01/19/23 00:45 Resp 18 01/19/23 00:45 BP 106/48 01/19/23 00:45 Pulse Ox 96 01/19/23 00:45 FiO2 Intake & Output 01/18/23 01/18/23 01/19/23 06:59 18:59 06:59 Intake Total 2351 Output Total 200 2758 Balance 2151 -2758 Weight 74.6 kg Intake: IV 2351 Output: Drainage 110 Right Lateral Hip 110 Urine 1000 Uretheral (Moreno) 700 Post Void Residual 1648 Estimated Blood Loss 200 Other: Voiding Method Bedpan # Voids 1 - Exam The patient is resting comfortably in her bed. She is alert and able to answer questions. On inspection of the right hip there is no intact incisional wound VAC with good seal. Her Hemovac drain was removed. Her thigh was soft. Femoral nerve function is intact. Distally she is able to actively plantarflex and dorsiflex her ankle and her toes. Assessment and Plan Assessment: Postoperative day #1 status post right direct anterior total hip arthroplasty Plan: 1. Weight bearing as tolerated right lower extremity, and with assistance and a walker 2. DVT prophylaxis - the patient is going to start Eliquis that was prescribed by Cardiology 3. 2 doses of postoperative Ancef followed by 2 weeks of doxycycline until her incision heals 4. Appreciate internal medicine's assistance with preoperative medical management 5. Physical therapy for gait training 6. Dispo: She'll likely need discharge to long-term facility or rehab and will likely be in the hospital through the weekend while this is arranged.
[2023-01-19] MEDS: PANTOPRAZOLE 40 MG TABLET PO SCH (06:36)
[2023-01-19] MEDS: APIXABAN 2.5 MG TABLET PO SCH ×2 (08:55→21:28)
[2023-01-19] MEDS: FLUoxetine HCL 20 MG CAP PO SCH (08:55)
[2023-01-19 09:33] LABS: Basophils # (A) 0.02 X 10*3/uL (0.00-0.10); Basophils % (A) 0.2 %; Eosinophils # (A) 0 X 10*3/uL (0.04-0.35); Eosinophils % (A) 0 %; HCT 26.5 % (37.2-46.3); HGB 8.2 g/dL (12.0-15.0); Lymphocytes # (A) 1.63 X 10*3/uL (0.90-5.00); Lymphocytes % (A) 17.4 %; MCH 31.7 pg (27.0-32.0); MCHC 30.9 g/dL (32.0-37.0); MCV 102.3 FL (80.0-97.0); Monocytes % (A) 8.5 %; NRBC Per 100 WBC 0 X 10*3/uL (0.00-0.01); Neutrophils # (A) 6.89 X 10*3/uL (1.80-7.70); Neutrophils % (A) 73.5 %; Platelet Count 287 X 10*3/uL (140-440); RBC 2.59 X 10*6/uL (4.10-5.20); RDW 13.2 % (11.5-14.5); WBC 9.38 X 10*3/uL (4.50-10.00)
[2023-01-19] MEDS: TIOTROPIUM 2.5 MCG INHALER INHALATION SCH (09:42)
[2023-01-19] MEDS: buPROPion SR 100 MG TABLET.ER PO SCH ×2 (10:31→21:48)
[2023-01-19] MEDS: DOXYCYCLINE 100 MG CAP PO SCH ×2 (10:32→21:27)
[2023-01-19] MEDS: HYDROcodone/APAP 10-325MG 1 EACH TAB PO PRN ×2 (10:32→16:09)
[2023-01-19] MEDS: TOPIRAMATE 25 MG TAB PO SCH (10:32)
[2023-01-19 12:01] LABS: African American GFR (CKD) 79 (>60 ml/min/1.73 sqM); Anion Gap 8 mmol/L; Blood Urea Nitrogen 13 mg/dL (7-17); Calcium 8.4 mg/dL (8.4-10.2); Carbon Dioxide 21 mmol/L (22-30); Chloride 110 mmol/L (98-107); Glucose 79 mg/dL (74-99); Non-African American GFR(CKD) 69 (>60 ml/min/1.73 sqM); Sodium 139 mmol/L (137-145)
--- NOTE | 2023-01-19 16:07 | P.PN ---
Subjective Progress Note Date: 01/19/23 Hospital course: Patient is a very pleasant 59-year-old female with a past medical history of CAD with stenting, carotid artery stenosis status post endarterectomy, atrial fibrillation, hypertension, hyperlipidemia, COPD, and polysubstance abuse with history of cocaine abuse and reports of binge drinking behaviors. She is currently admitted under orthopedic surgery team status post right total hip arthroplasty. We have been consulted for medical management throughout hospitalization. Physical exam: Patient seen and fully evaluated at bedside. She reports moderate postoperative pain currently controlled with current pain medication regimen. She denies having any numbness/tingling/weakness and denies any other complaints or needs at this time. Vital signs reviewed and stable. General: Nontoxic, no distress and appears stated age. Derm: Skin warm and dry, normal coloration for ethnicity. Postsurgical incision/dressing/wound VAC right hip. Head: Atraumatic, normocephalic and symmetric. Eyes: EOMs intact, no lid lag, and anicteric sclera Mouth: no lip lesions, mucus membranes moist Cardiovascular: regular rate and rhythm with normal S1S2, systolic murmur, po sitive posterior tibial pulses bilaterally, and cap refill < 2 seconds. Lungs: Respirations even, regular, and unlabored on room air. Lungs CTA bilaterally, no rhonchi, no rales, no wheezing, and no accessory muscle usage. Abdominal: soft, nontender to palpation, no guarding, no appreciable organ omegaly Ext: Movement and sensation intact. No gross muscle atrophy, no edema, no contractures Neuro: Speech clear, face symmetrical and CN II-XII grossly intact with no noted focal neuro deficits Psych: Alert and oriented to person, place, time, and situation. Appropriate and pleasant affect. Assessment and Plan of Care: Acute postoperative blood loss anemia Postoperative hemoglobin 8.2. This is a stable and expected finding, no need for transfusion or additional orders at this time as there are no signs of active bleeding. Replace repeat morning CBC. Will follow up on these results and place additional orders as indicated based upon these findings. Status post right total hip arthroplasty Management per primary admitting orthopedic surgery team including DVT prophylaxis, pain management, wound/dressing/wound VAC care, weightbearing, and PT/OT. Patient currently on DVT prophylaxis with Eliquis 2.5 mg twice daily. CAD status post stenting Carotid artery stenosis status post endarterectomy Paroxysmal atrial fibrillation Hypertension Hyperlipidemia COPD Polysubstance abuse History of alcohol abuse with binge drinking behaviors -Home medications reviewed and reordered. Patient to continue with aspirin 81 mg daily, Wellbutrin 200 mg twice daily, Prozac 40 mg daily, Zyprexa 5 mg nightly, Protonix 40 mg daily, Spiriva 18 g via inhalation daily, Topamax 50 mg daily, and trazodone 50 mg nightly -Monitor for signs/symptoms of withdrawal. Patient reports greater than 2 weeks since last alcoholic beverage. -Fall precautions in place. Data and imaging reviewed: Postoperative Labs completed and reviewed. CBC showing acute blood loss anemia with hemoglobin of 8.2. BMP revealing hyperchloremia with chloride 110 and an hypocarbia with bicarb of 21. Vital signs reviewed. Blood pressure 102/52, heart rate 62, respiratory rate 19, temp 98.5F, SpO2 of 95% on room air. Thank you for allowing us to participate in the care of this pleasant patient. Do not hesitate to contact us with questions. Someone can be reached from the [facility] hospitalist group all hours of the day at [phone] or via perfect serve. Patient was seen independently by Nurse Pracitioner. This document was prepared using TMS dictation software. Please allow for errors in ssn/ssbn weapons equipment operator, while rare they do occur. Objective - Vital Signs Vital signs: Vital Signs Temp 98.4 F 01/19/23 00:45 Pulse 61 01/19/23 00:45 Resp 18 01/19/23 00:45 BP 106/48 01/19/23 00:45 Pulse Ox 96 01/19/23 00:45 FiO2 Intake & Output 01/18/23 01/19/23 01/19/23 18:59 06:59 18:59 Intake Total 2351 Output Total 200 2758 Balance 2151 -2758 Weight 74.6 kg Intake: IV 2351 Output: Drainage 110 Right Lateral Hip 110 Urine 1000 Uretheral (Moreno) 700 Post Void Residual 1648 Estimated Blood Loss 200 Other: Voiding Method Bedpan # Voids 1 - Labs CBC & Chem 7: 01/19/23 04:19 01/19/23 06:43
[2023-01-19] MEDS: HYDROmorphone 0.5 MG/0.5 ML SYRINGE IVP PRN (17:44)
[2023-01-19] MEDS: SENNOSIDES-DOCUSATE SODIUM 1 EACH TAB PO SCH (21:27)
[2023-01-19] MEDS: traZODone HCL 50 MG TAB PO SCH (21:27)
[2023-01-19] MEDS: OLANZapine 5 MG TAB PO SCH (21:27)
[2023-01-20] MEDS: HYDROcodone/APAP 5-325MG 1 EACH TAB PO PRN ×2 (00:56→06:51)
[2023-01-20] MEDS: LACTATED RINGERS 1,000 ML IV SCH ×3 (05:07→20:56)
[2023-01-20 05:59] LABS: HCT 26.4 % (34.0-46.0); HGB 8.3 gm/dL (11.4-16.0); Hypochromasia Slight; MCH 31.8 pg (25.0-35.0); MCHC 31.5 g/dL (31.0-37.0); Mean Platelet Volume 7.1; Platelet Count 278 k/uL (150-450); RBC 2.62 m/uL (3.80-5.40); RDW 12.8 % (11.5-15.5); WBC 6.1 k/uL (3.8-10.6)
[2023-01-20 06:07] LABS: ALT 15 U/L (4-34); AST 47 U/L (14-36); African American GFR (CKD) 84 (>60 ml/min/1.73 sqM); Albumin 2.8 g/dL (3.5-5.0); Albumin/Globulin Ratio 1.1; Alkaline Phosphatase 79 U/L (38-126); Blood Urea Nitrogen 13 mg/dL (7-17); Calcium 8.2 mg/dL (8.4-10.2); Carbon Dioxide 21 mmol/L (22-30); Globulin 2.5 g/dL; Glucose 86 mg/dL (74-99); Magnesium 1.9 mg/dL (1.6-2.3); Non-African American GFR(CKD) 73 (>60 ml/min/1.73 sqM); Potassium 3.9 mmol/L (3.5-5.1); Sodium 136 mmol/L (137-145); Total Bilirubin 0.5 mg/dL (0.2-1.3); Total Protein 5.3 g/dL (6.3-8.2)
[2023-01-20 06:21] LABS: Anion Gap 7 mmol/L; Chloride 108 mmol/L (98-107)
[2023-01-20] MEDS: FLUoxetine HCL 20 MG CAP PO SCH (08:58)
[2023-01-20] MEDS: buPROPion SR 100 MG TABLET.ER PO SCH ×2 (08:58→21:49)
[2023-01-20] MEDS: APIXABAN 2.5 MG TABLET PO SCH ×2 (08:58→21:50)
[2023-01-20] MEDS: DOXYCYCLINE 100 MG CAP PO SCH ×2 (08:59→21:50)
[2023-01-20] MEDS: PANTOPRAZOLE 40 MG TABLET PO SCH (08:59)
[2023-01-20] MEDS: TOPIRAMATE 25 MG TAB PO SCH (08:59)
[2023-01-20] MEDS: ASPIRIN 81 MG PO SCH (09:00)
[2023-01-20] MEDS: TIOTROPIUM 2.5 MCG INHALER INHALATION SCH (09:11)
[2023-01-20] MEDS: HYDROcodone/APAP 10-325MG 1 EACH TAB PO PRN ×2 (12:17→23:22)
--- NOTE | 2023-01-20 16:35 | P.PN ---
Subjective Progress Note Date: 01/20/23 The patient is resting comfortably in bed. She complains of pain in her right hip but is otherwise without complaints. Denies chest pain or shortness of breath. Objective - Vital Signs Vital signs: Vital Signs Temp 98.3 F 01/20/23 13:35 Pulse 67 01/20/23 13:35 Resp 19 01/20/23 13:35 BP 91/50 01/20/23 13:35 Pulse Ox 95 01/20/23 13:35 FiO2 Intake & Output 01/19/23 01/20/23 01/20/23 18:59 06:59 18:59 Output Total 300 Balance -300 Weight 74.6 kg Output: Urine 300 Other: Voiding Method Bedside Commode Bedside Commode # Voids 3 7 - Exam The patient is resting comfortably in her bed. She is alert and able to answer questions. Her incisional wound VAC and drain sponge are intact with no drainage. Her thigh is moderately swollen but is soft. Femoral nerve function is intact. Distally she is able to actively plantar flex nurse flex her ankle and toes. - Labs CBC & Chem 7: 01/20/23 05:27 01/20/23 05:27 Labs: Abnormal Lab Results - Last 24 Hours (Table) 01/20/23 01/20/23 Range/Units 05:27 05:27 RBC 2.62 L (3.80-5.40) m/uL Hgb 8.3 L (11.4-16.0) gm/dL Hct 26.4 L (34.0-46.0) % MCV 101.0 H (80.0-100.0) fL Sodium 136 L (137-145) mmol/L Chloride 108 H (98-107) mmol/L Carbon Dioxide 21 L (22-30) mmol/L Calcium 8.2 L (8.4-10.2) mg/dL AST 47 H (14-36) U/L Total Protein 5.3 L (6.3-8.2) g/dL Albumin 2.8 L (3.5-5.0) g/dL Assessment and Plan Assessment: Postoperative day #2 status post right direct anterior total hip replacement Multiple medical problems Plan: Continue treatment as outlined previously. Appreciate internal medicine's assistance with preoperative medical management. Leave incisional wound VAC in place. DVT prophylaxis with Eliquis and low-dose antibiotic suppression with doxycycline until her incision heals. Plan for discharge to rehab tomorrow.
--- NOTE | 2023-01-20 16:44 | P.PN ---
Subjective Progress Note Date: 01/20/23 Hospital course: Patient is a very pleasant 59-year-old female with a past medical history of CAD with stenting, carotid artery stenosis status post endarterectomy, atrial fibrillation, hypertension, hyperlipidemia, COPD, and polysubstance abuse with history of cocaine abuse and reports of binge drinking behaviors. She is currently admitted under orthopedic surgery team status post right total hip arthroplasty. We have been consulted for medical management throughout hospitalization. Physical exam: Patient seen and fully evaluated at bedside. She reports having a better day today than yesterday. She reports pain is better controlled and she has been up and out of bed twice already this morning. Vital signs reviewed and stable. General: Nontoxic, no distress and appears stated age. Derm: Skin warm and dry, normal coloration for ethnicity. Postsurgical incision/dressing/wound VAC right hip. Head: Atraumatic, normocephalic and symmetric. Eyes: EOMs intact, no lid lag, and anicteric sclera Mouth: no lip lesions, mucus membranes moist Cardiovascular: regular rate and rhythm with normal S1S2, systolic murmur, positive posterior tibial pulses bilaterally, and cap refill < 2 seconds. Lungs: Respirations even, regular, and unlabored on room air. Lungs CTA bi laterally, no rhonchi, no rales, no wheezing, and no accessory muscle usage. Abdominal: soft, nontender to palpation, no guarding, no appreciable organomegaly Ext: Movement and sensation intact. No gross muscle atrophy, no edema, no contractures Neuro: Speech clear, face symmetrical and CN II-XII grossly intact with no noted focal neuro deficits Psych: Alert and oriented to person, place, time, and situation. Appropriate and pleasant affect. Assessment and Plan of Care: Acute postoperative blood loss anemia Postoperative hemoglobin 8.2 with repeat this morning 8.3. This is a stable and expected finding, no need for transfusion or additional orders at this time as there are no signs of active bleeding. Hemoglobin stable, No need for further testing at this time. Status post right total hip arthroplasty Management per primary admitting orthopedic surgery team including DVT prophy laxis, pain management, wound/dressing/wound VAC care, weightbearing, and PT/OT. Patient currently on DVT prophylaxis with Eliquis 2.5 mg twice daily. CAD status post stenting Carotid artery stenosis status post endarterectomy Paroxysmal atrial fibrillation Hypertension Hyperlipidemia COPD Polysubstance abuse History of alcohol abuse with binge drinking behaviors -Patient to continue with aspirin 81 mg daily, Wellbutrin 200 mg twice daily, Prozac 40 mg daily, Zyprexa 5 mg nightly, Protonix 40 mg daily, Spiriva 18 g via inhalation daily, Topamax 50 mg daily, and trazodone 50 mg nightly -Monitor for signs/symptoms of withdrawal. Patient reports greater than 2 weeks since last alcoholic beverage. -Fall precautions in place. Data and imaging reviewed: Labs completed and reviewed. CBC showing stable hemoglobin of 8.3 otherwise no significant abnormalities. BMP showing sodium 136, potassium 3.9, chloride 108, bicarb 21, anion gap of 7 with normal renal function with BUN of 13, creatinine 0.83, GFR 73. Glucose 86. Vital signs reviewed. Blood pressure 101/60, heart rate 66, respiratory rate 18, temp 98.9F, SpO2 of 95% on room air Patient is medically optimized for discharge once cleared by primary admitting orthopedic surgery team. Thank you for allowing us to participate in the care of this pleasant patient. Do not hesitate to contact us with questions. Someone can be reached from the [facility] hospitalist group all hours of the day at [phone] or via perfect serve. Patient was seen independently by Nurse Pracitioner. This document was prepared using [employer] dictation software. Please allow for errors in mud analysis well logging operator, while rare they do occur. Objective - Vital Signs Vital signs: Vital Signs Temp 99.4 F 01/20/23 00:55 Pulse 64 01/20/23 00:55 Resp 16 01/20/23 04:17 BP 93/57 01/20/23 00:55 Pulse Ox 96 01/20/23 00:55 FiO2 Intake & Output 01/19/23 01/20/23 01/20/23 18:59 06:59 18:59 Output Total 300 Balance -300 Weight 74.6 kg Output: Urine 300 Other: Voiding Method Bedside Commode Bedside Commode # Voids 3 7 - Labs CBC & Chem 7: 01/20/23 05:27 01/20/23 05:27 Labs: Abnormal Lab Results - Last 24 Hours (Table) 01/19/23 01/19/23 01/20/23 Range/Units 04:19 06:43 05:27 RBC 2.59 L 2.62 L (4.10-5.20) X 10*6/uL Hgb 8.2 L 8.3 L (12.0-15.0) g/dL Hct 26.5 L 26.4 L (37.2-46.3) % MCV 102.3 H 101.0 H (80.0-97.0) FL MCHC 30.9 L (32.0-37.0) g/dL MPV 9.0 L (9.5-12.2) FL Eosinophils # 0 L (0.04-0.35) X 10*3/uL Sodium (137-145) mmol/L Chloride 110 H (98-107) mmol/L Carbon Dioxide 21 L (22-30) mmol/L Calcium (8.4-10.2) mg/dL AST (14-36) U/L Total Protein (6.3-8.2) g/dL Albumin (3.5-5.0) g/dL 01/20/23 Range/Units 05:27 RBC (4.10-5.20) X 10*6/uL Hgb (12.0-15.0) g/dL Hct (37.2-46.3) % MCV (80.0-97.0) FL MCHC (32.0-37.0) g/dL MPV (9.5-12.2) FL Eosinophils # (0.04-0.35) X 10*3/uL Sodium 136 L (137-145) mmol/L Chloride 108 H (98-107) mmol/L Carbon Dioxide 21 L (22-30) mmol/L Calcium 8.2 L (8.4-10.2) mg/dL AST 47 H (14-36) U/L Total Protein 5.3 L (6.3-8.2) g/dL Albumin 2.8 L (3.5-5.0) g/dL
[2023-01-20] MEDS: traZODone HCL 50 MG TAB PO SCH (21:50)
[2023-01-20] MEDS: OLANZapine 5 MG TAB PO SCH (21:50)
[2023-01-20] MEDS: SENNOSIDES-DOCUSATE SODIUM 1 EACH TAB PO SCH (21:50)
[2023-01-21] MEDS: LACTATED RINGERS 1,000 ML IV SCH ×3 (04:05→16:25)
--- NOTE | 2023-01-21 07:57 | P.DS ---
Providers Date of admission: 01/18/2023 Attending physician: Henry Perez Consults: 01/18/23 16:36 Consult Physician Routine Consulting Provider: Kandace Livingston Consult Reason/Comments: post op medical management Do you want consulting provider notified?: Yes Primary care physician: SUSIE Lewis Hospital Course: The patient is very pleasant 67-year-old female with multiple medical problems was admitted under my care this past Saturday. She had severe hip arthritis and underwent a hip replacement. Following on computed surgery she was transferred to the orthopedic floor. She was given 2 doses of postoperative Ancef and then was started on doxycycline given her high risk of wound healing issues. She was started on Eliquis for DVT prophylaxis. Internal medicine assisted with her perioperative medical issues. She worked with physical therapy. Her drain was pulled on postoperative day #1. She was ultimately cleared for discharge to rehab. Plan - Discharge Summary Discharge Rx Participant: No New Discharge Prescriptions: New HYDROcodone/APAP 5-325MG [Fairview 5-325] 1 - 2 tab PO Q6HR PRN #32 tab PRN Reason: Pain Apixaban [Eliquis] 2.5 mg PO BID #60 tab Omeprazole 40 mg PO DAILY #30 cap Docusate [Colace] 100 mg PO BID #30 capsule Doxycycline Monohydrate 100 mg PO BID #30 cap Continue Promethazine [Phenergan] 25 mg PO Q8H PRN PRN Reason: Nausea FLUoxetine HCL [PROzac] 40 mg PO DAILY Nicotine 14Mg/24Hr Patch [Habitrol] 1 patch TRANSDERM DAILY patch Pantoprazole [Protonix] 40 mg PO DAILY Tiotropium [place] [Spiriva Handihaler] 18 mcg IH DAILY Cholecalciferol (Vitamin D3) [Vitamin D3 (125 MCG = 5,000 IU)] 125 mcg PO DAILY buPROPion SR [Wellbutrin SR] 200 mg PO BID traZODone HCL 50 mg PO HS Topiramate [Topamax] 50 mg PO DAILY OLANZapine [ZyPREXA] 5 mg PO HS Nitrofurantoin Monohyd/M-Cryst [Macrobid] 100 mg PO Q12HR Aspirin 81 mg PO DAILY Nitroglycerin Sl Tabs [Nitrostat] 0.4 mg SUBLINGUAL Q5M PRN PRN Reason: Chest Pain Albuterol Inhaler [Ventolin Hfa Inhaler] 1 - 2 puff INHALATION Q6H PRN PRN Reason: Shortness Of Breath Cyanocobalamin (Vitamin B-12) [Vitamin B-12] 1,000 mcg PO DAILY No Action HYDROcodone/APAP 7.5-325MG [[place]view 7.5-325] 1 tab PO Q8H PRN PRN Reason: Pain Discharge Medication List FLUoxetine HCL [PROzac] 40 mg PO DAILY 02/04/21 [History] OLANZapine [ZyPREXA] 5 mg PO HS 02/04/21 [History] Promethazine [Phenergan] 25 mg PO Q8H PRN 02/04/21 [History] Topiramate [Topamax] 50 mg PO DAILY 02/04/21 [History] buPROPion SR [Wellbutrin SR] 200 mg PO BID 02/04/21 [History] traZODone HCL 50 mg PO HS 02/04/21 [History] Nicotine 14Mg/24Hr Patch [Habitrol] 1 patch TRANSDERM DAILY patch 02/05/21 [Rx] Albuterol Inhaler [Ventolin Hfa Inhaler] 1 - 2 puff INHALATION Q6H PRN 01/15/23 [History] Aspirin 81 mg PO DAILY 01/15/23 [History] Cholecalciferol (Vitamin D3) [Vitamin D3 (125 MCG = 5,000 IU)] 125 mcg PO DAILY 01/15/23 [History] Cyanocobalamin (Vitamin B-12) [Vitamin B-12] 1,000 mcg PO DAILY 01/15/23 [History] HYDROcodone/APAP 7.5-325MG [[place]view 7.5-325] 1 tab PO Q8H PRN 01/15/23 [History] Nitrofurantoin Monohyd/M-Cryst [Macrobid] 100 mg PO Q12HR 01/15/23 [History] Nitroglycerin Sl Tabs [Nitrostat] 0.4 mg SUBLINGUAL Q5M PRN 01/15/23 [History] Pantoprazole [Protonix] 40 mg PO DAILY 01/15/23 [History] Tiotropium [place] [Spiriva Handihaler] 18 mcg IH DAILY 01/15/23 [History] Apixaban [Eliquis] 2.5 mg PO BID #60 tab 01/18/23 [Rx] Docusate [Colace] 100 mg PO BID #30 capsule 01/18/23 [Rx] HYDROcodone/APAP 5-325MG [[place] 5-325] 1 - 2 tab PO Q6HR PRN #32 tab 01/18/23 [Rx] Omeprazole 40 mg PO DAILY #30 cap 01/18/23 [Rx] Doxycycline Monohydrate 100 mg PO BID #30 cap 01/19/23 [Rx] Follow up Appointment(s)/Referral(s): Reji Bailon MD [Medical Doctor] - 1 Week Henry Perez MD [Medical Doctor] - 1 Week Activity/Diet/Wound Care/Special Instructions: 1. Weight-bear as tolerated on your operative extremity unless instructed otherwise. Use a walker or other assistive device to ambulate. 2. Leave surgical dressing in place. If your dressing becomes saturated with blood, there is drainage, or the dressing becomes loose please contact the office. 3. It is okay to shower with your surgical dressing, but do not submerge in water (no hot tubs, bath's, swimming etc.) 4. Make sure to take her blood clot prevention medication as prescribed (aspi rin, Eliquis, Xarelto, and Plavix are commonly prescribed medications for blood clot prevention) 5. While taking [place] or Percocet for pain make sure you're taking a stool softener (Colace) and drink lots of water. 6. Keep all follow-up appointments as scheduled. You will usually be seen in 1-2 weeks following surgery. 7. Please contact the office with any questions or concerns [phone] Discharge Disposition: TRANSFER TO SNF/ECF
[2023-01-21 08:37] LABS: Basophils # (A) 0.02 X 10*3/uL (0.00-0.10); Basophils % (A) 0.3 %; Eosinophils # (A) 0.06 X 10*3/uL (0.04-0.35); Eosinophils % (A) 0.9 %; HCT 25.8 % (37.2-46.3); Lymphocytes # (A) 1.63 X 10*3/uL (0.90-5.00); Lymphocytes % (A) 24.6 %; MCH 31.5 pg (27.0-32.0); MCV 101.6 FL (80.0-97.0); Mean Platelet Volume 9.4 FL (9.5-12.2); Monocytes # (A) 0.63 X 10*3/uL (0.20-1.00); Monocytes % (A) 9.5 %; NRBC Per 100 WBC 0 X 10*3/uL (0.00-0.01); Neutrophils # (A) 4.26 X 10*3/uL (1.80-7.70); Neutrophils % (A) 64.4 %; Platelet Count 277 X 10*3/uL (140-440); RBC 2.54 X 10*6/uL (4.10-5.20); RDW 12.8 % (11.5-14.5); WBC 6.62 X 10*3/uL (4.50-10.00)
[2023-01-21] MEDS: TIOTROPIUM 2.5 MCG INHALER INHALATION SCH (09:35)
[2023-01-21] MEDS: buPROPion SR 100 MG TABLET.ER PO SCH ×2 (10:44→22:06)
[2023-01-21] MEDS: APIXABAN 2.5 MG TABLET PO SCH ×2 (10:44→22:04)
[2023-01-21] MEDS: FLUoxetine HCL 20 MG CAP PO SCH (10:45)
[2023-01-21] MEDS: DOXYCYCLINE 100 MG CAP PO SCH ×2 (10:45→22:06)
[2023-01-21] MEDS: TOPIRAMATE 25 MG TAB PO SCH (10:45)
[2023-01-21] MEDS: ASPIRIN 81 MG PO SCH (10:45)
[2023-01-21] MEDS: PANTOPRAZOLE 40 MG TABLET PO SCH (10:46)
[2023-01-21] MEDS: HYDROcodone/APAP 10-325MG 1 EACH TAB PO PRN ×2 (10:52→22:05)
--- NOTE | 2023-01-21 11:07 | P.PN ---
Subjective Progress Note Date: 01/21/23 Hospital course: Patient is a very pleasant 59-year-old female with a past medical history of CAD with stenting, carotid artery stenosis status post endarterectomy, atrial fibrillation, hypertension, hyperlipidemia, COPD, and polysubstance abuse with history of cocaine abuse and reports of binge drinking behaviors. She is currently admitted under orthopedic surgery team status post right total hip arthroplasty. We have been consulted for medical management throughout hospitalization. Physical exam: Patient seen and fully evaluated at bedside. She reports continued improvement of pain and ability to move and ambulate. She continues to deny having any other complaints including headache, lightheadedness, dizziness, chest pain, palpitations, shortness of breath, or experiencing any numbness/tingling/focal weakness in her extremity's. Vital signs reviewed and stable. General: Nontoxic, no distress and appears stated age. Derm: Skin warm and dry, normal coloration for ethnicity. Postsurgical incision/dressing/wound VAC right hip. Head: Atraumatic, normocephalic and symmetric. Eyes: EOMs intact, no lid lag, and anicteric sclera Mouth: no lip lesions, mucus membranes moist Cardiovascular: regular rate and rhythm with normal S1S2, systolic murmur, positive posterior tibial pulses bilaterally, and cap refill < 2 seconds. Lungs: Respirations even, regular, and unlabored on room air. Lungs CTA bilaterally, no rhonchi, no rales, no wheezing, and no accessory muscle usage. Abdominal: soft, nontender to palpation, no guarding, no appreciable organomegaly Ext: Movement and sensation intact. No gross muscle atrophy, no edema, no contractures Neuro: Speech clear, face symmetrical and CN II-XII grossly intact with no noted focal neuro deficits Psych: Alert and oriented to person, place, time, and situation. Appropriate and pleasant affect. Assessment and Plan of Care: Acute postoperative blood loss anemia Postoperative hemoglobin 8.2 with repeat this morning 8.3. This is a stable and expected finding, no need for transfusion or additional orders at this time as there are no signs of active bleeding. Hemoglobin stable, No need for further testing at this time. Status post right total hip arthroplasty Management per primary admitting orthopedic surgery team including DVT prophylaxis, pain management, wound/dressing/wound VAC care, weightbearing, and PT/OT. Patient currently on DVT prophylaxis with Eliquis 2.5 mg twice daily. CAD status post stenting Carotid artery stenosis status post endarterectomy Paroxysmal atrial fibrillation Hypertension Hyperlipidemia COPD Polysubstance abuse History of alcohol abuse with binge drinking behaviors -Patient to continue with aspirin 81 mg daily, Wellbutrin 200 mg twice daily, Prozac 40 mg daily, Zyprexa 5 mg nightly, Protonix 40 mg daily, Spiriva 18 g via inhalation daily, Topamax 50 mg daily, and trazodone 50 mg nightly -Monitor for signs/symptoms of withdrawal. Patient reports greater than 2 weeks since last alcoholic beverage. -Fall precautions in place. Data and imaging reviewed: Labs completed and reviewed. Hemoglobin stable at 8.0. Vital signs reviewed. Blood pressure 117/69, heart rate 64, respiratory rate 19, temp 98.6F with SpO2 of 99% on room air. Patient is medically optimized for discharge once cleared by primary admitting orthopedic surgery team. Thank you for allowing us to participate in the care of this pleasant patient. Do not hesitate to contact us with questions. Someone can be reached from the [facility] hospitalist group all hours of the day at [phone] or via perfect serve. Patient was seen independently by Nurse Pracitioner. This document was prepared using [employer] dictation software. Please allow for errors in bundle cutter, while rare they do occur. I reviewed the documentation as provided by the CAL above, who is the original author of this note. I agree with the documented assessment and plan, with the following changes: none Objective - Vital Signs Vital signs: Vital Signs Temp 98.6 F 01/21/23 07:18 Pulse 64 01/21/23 07:18 Resp 19 01/21/23 07:18 BP 117/69 01/21/23 07:18 Pulse Ox 99 01/21/23 07:18 FiO2 Intake & Output 01/20/23 01/21/23 01/21/23 18:59 06:59 18:59 Other: Voiding Method Bedside Commode Bedside Commode # Voids 7 4 - Labs CBC & Chem 7: 01/21/23 05:39 01/20/23 05:27
[2023-01-21] MEDS: traZODone HCL 50 MG TAB PO SCH (22:04)
[2023-01-21] MEDS: SENNOSIDES-DOCUSATE SODIUM 1 EACH TAB PO SCH (22:05)
[2023-01-21] MEDS: OLANZapine 5 MG TAB PO SCH (22:06)
[2023-01-22] MEDS: LACTATED RINGERS 1,000 ML IV SCH ×4 (01:05→20:37)
[2023-01-22] MEDS: HYDROmorphone 0.5 MG/0.5 ML SYRINGE IVP PRN (01:46)
[2023-01-22] MEDS: PANTOPRAZOLE 40 MG TABLET PO SCH (06:30)
[2023-01-22] MEDS: HYDROcodone/APAP 10-325MG 1 EACH TAB PO PRN ×2 (06:34→12:42)
[2023-01-22] MEDS: APIXABAN 2.5 MG TABLET PO SCH ×2 (09:12→20:37)
[2023-01-22] MEDS: FLUoxetine HCL 20 MG CAP PO SCH (09:12)
[2023-01-22] MEDS: ASPIRIN 81 MG PO SCH (09:12)
[2023-01-22] MEDS: buPROPion SR 100 MG TABLET.ER PO SCH ×2 (09:13→20:37)
[2023-01-22] MEDS: TOPIRAMATE 25 MG TAB PO SCH (09:13)
[2023-01-22] MEDS: DOXYCYCLINE 100 MG CAP PO SCH ×2 (09:13→20:37)
[2023-01-22] MEDS: TIOTROPIUM 2.5 MCG INHALER INHALATION SCH (09:41)
--- NOTE | 2023-01-22 11:40 | P.PN ---
Subjective Progress Note Date: 01/22/23 Patient is doing well. Her pain is improving. Her only complaint this morning his spasms occasionally throughout the right leg. She says she has been up walking with therapy. He notes an improvement in the deep-seated groin pain she was having prior to surgery. She denies chest pain or shortness of breath. She denies feeling lightheaded. Objective - Vital Signs Vital signs: Vital Signs Temp 97.9 F 01/22/23 07:15 Pulse 62 01/22/23 07:15 Resp 19 01/22/23 07:15 BP 83/53 01/22/23 07:15 Pulse Ox 91 L 01/22/23 07:15 FiO2 Intake & Output 01/21/23 01/22/23 01/22/23 18:59 06:59 18:59 Other: Voiding Method Toilet Toilet Toilet Bedside Commode Bedside Commode Bedside Commode # Voids 3 5 2 # Bowel Movements 1 - Exam The patient is resting comfortably in bed. She is alert and able to answer questions. A focused examination of the right lower extremity was conducted. On inspection she has an intact incisional wound VAC with good seal. Her drain sponge and dressing are intact with no drainage. Her thigh is soft. Femoral nerve function is intact. She is able to actively plantar flex and dorsiflex her ankle and toes. - Labs CBC & Chem 7: 01/21/23 05:39 01/20/23 05:27 Assessment and Plan Assessment: Postoperative day #4 status post right direct anterior total hip replacement and incisional wound VAC placement, doing well Multiple medical problems Plan: Continue treatment as outlined previously. The patient is getting doxycycline for low-dose antibiotic suppression given her high risk of wound healing and infection as well as Eliquis for DVT prophylaxis. The patient has been approved for discharge to rehab on .
[2023-01-22] MEDS: diazePAM 5 MG TAB PO PRN ×2 (12:43→20:38)
--- NOTE | 2023-01-22 15:58 | P.PN ---
Subjective Progress Note Date: 01/22/23 Hospital course: Patient is a very pleasant 59-year-old female with a past medical history of CAD with stenting, carotid artery stenosis status post endarterectomy, atrial fibrillation, hypertension, hyperlipidemia, COPD, and polysubstance abuse with history of cocaine abuse and reports of binge drinking behaviors. She is currently admitted under orthopedic surgery team status post right total hip arthroplasty. We have been consulted for medical management throughout hospitalization. Physical exam: Patient seen and fully evaluated at bedside. She reports continued improvement of pain and ability to move and ambulate. She was sitting up in the chair today and continues to deny having any other complaints including headache, lightheadedness, dizziness, chest pain, palpitations, shortness of breath, or experiencing any numbness/tingling/focal weakness in her extremity's. Vital signs reviewed and stable. General: Nontoxic, no distress and appears stated age. Derm: Skin warm and dry, normal coloration for ethnicity. Postsurgical incision/dressing/wound VAC right hip. Head: Atraumatic, normocephalic and symmetric. Eyes: EOMs intact, no lid lag, and anicteric sclera Mouth: no lip lesions, mucus membranes moist Cardiovascular: regular rate and rhythm with normal S1S2, systolic murmur, positive posterior tibial pulses bilaterally, and cap refill < 2 seconds. Lungs: Respirations even, regular, and unlabored on room air. Lungs CTA bilaterally, no rhonchi, no rales, no wheezing, and no accessory muscle usage. Abdominal: soft, nontender to palpation, no guarding, no appreciable organomegaly Ext: Movement and sensation intact. No gross muscle atrophy, no edema, no contractures Neuro: Speech clear, face symmetrical and CN II-XII grossly intact with no noted focal neuro deficits Psych: Alert and oriented to person, place, time, and situation. Appropriate and pleasant affect. Assessment and Plan of Care: Acute postoperative blood loss anemia Postoperative hemoglobin 8.2 with repeat this morning 8.3. This is a stable and expected finding, no need for transfusion or additional orders at this time as there are no signs of active bleeding. Hemoglobin stable, No need for further testing at this time. Status post right total hip arthroplasty Management per primary admitting orthopedic surgery team including DVT prophylaxis, pain management, wound/dressing/wound VAC care, weightbearing, and PT/OT. Patient currently on DVT prophylaxis with Eliquis 2.5 mg twice daily. CAD status post stenting Carotid artery stenosis status post endarterectomy Paroxysmal atrial fibrillation Hypertension Hyperlipidemia COPD Polysubstance abuse History of alcohol abuse with binge drinking behaviors -Patient to continue with aspirin 81 mg daily, Wellbutrin 200 mg twice daily, Prozac 40 mg daily, Zyprexa 5 mg nightly, Protonix 40 mg daily, Spiriva 18 g via inhalation daily, Topamax 50 mg daily, and trazodone 50 mg nightly -Monitor for signs/symptoms of withdrawal. Patient reports greater than 2 weeks since last alcoholic beverage. -Fall precautions in place. Patient is medically optimized for discharge once cleared by primary admitting orthopedic surgery team, plan is for discharge once care home facility is available. Patient awaiting insurance authorization requiring 3 night admission. Patient will be up for discharge on 01/24/23. Thank you for allowing us to participate in the care of this pleasant patient. Do not hesitate to contact us with questions. Someone can be reached from the [facility] hospitalist group all hours of the day at [phone] or via [employer] serve. Patient was seen independently by Nurse Pracitioner. This document was prepared using [employer] dictation software. Please allow for errors in licensed acupuncturist, while rare they do occur. Williams Vu NP rendered care for this patient independently, reviewed the findings and plan as documented in the note above. I did not physically speak with or examine the patient on this date. Objective - Vital Signs Vital signs: Vital Signs Temp 98.4 F 01/22/23 01:44 Pulse 71 01/22/23 01:44 Resp 18 01/22/23 01:44 BP 145/91 01/22/23 01:44 Pulse Ox 97 01/22/23 01:44 FiO2 Intake & Output 01/21/23 01/22/23 01/22/23 18:59 06:59 18:59 Other: Voiding Method Toilet Toilet Bedside Commode Bedside Commode # Voids 3 5 # Bowel Movements 1 - Labs CBC & Chem 7: 01/21/23 05:39 01/20/23 05:27 Labs: Abnormal Lab Results - Last 24 Hours (Table) 01/21/23 Range/Units 05:39 RBC 2.54 L (4.10-5.20) X 10*6/uL Hgb 8.0 L (12.0-15.0) g/dL Hct 25.8 L (37.2-46.3) % MCV 101.6 H (80.0-97.0) FL MCHC 31.0 L (32.0-37.0) g/dL MPV 9.4 L (9.5-12.2) FL
[2023-01-22] MEDS: traZODone HCL 50 MG TAB PO SCH (20:37)
[2023-01-22] MEDS: SENNOSIDES-DOCUSATE SODIUM 1 EACH TAB PO SCH (20:37)
[2023-01-22] MEDS: OLANZapine 5 MG TAB PO SCH (20:37)
[2023-01-22 21:32] VITALS: TEMP 98.5
[2023-01-23 01:55] LABS: Glucose,Whole Blood 120 mg/dL (70-110)
[2023-01-23 02:33] LABS: Glucose,Whole Blood 130 mg/dL (70-110)
[2023-01-23] MEDS ORDERED: SODIUM CHLORIDE 0.9% 1,000 ML IV ONE (02:57)
--- NOTE | 2023-01-23 02:57 | CT ---
EXAM: CT Head Without Intravenous Contrast CLINICAL HISTORY: ITS.REASON CT Reason: unwitnessed fall TECHNIQUE: Axial computed tomography images of the head/brain without intravenous contrast. CTDI is 45.2 mGy and DLP is 1139 mGy-cm. This CT exam was performed using one or more of the following dose reduction techniques: automated exposure control, adjustment of the mA and/or kV according to patient size, and/or use of iterative reconstruction technique. COMPARISON: No relevant prior studies available. FINDINGS: Brain: Mild periventricular white matter changes, likely related to micro-angiopathy. No hemorrhage. Ventricles: Unremarkable. No ventriculomegaly. Bones/joints: Unremarkable. No acute fracture. Soft tissues: Unremarkable. Sinuses: Unremarkable as visualized. No acute sinusitis. Mastoid air cells: Unremarkable as visualized. No mastoid effusion. IMPRESSION: Mild periventricular white matter changes, likely related to micro- angiopathy. EXAM: CT Cervical Spine Without Intravenous Contrast CLINICAL HISTORY: ITS.REASON CT Reason: unwitnessed fall TECHNIQUE: Axial computed tomography images of the cervical spine without intravenous contrast. CTDI is 12.6 mGy and DLP is 370.9 mGy-cm. This CT exam was performed using one or more of the following dose reduction techniques: automated exposure control, adjustment of the mA and/or kV according to patient size, and/or use of iterative reconstruction technique. COMPARISON: No relevant prior studies available. FINDINGS: Vertebrae: Straightening of the upper cervical spine. Otherwise alignment is maintained with preservation of vertebral body heights. No acute fracture. Discs/spinal canal/neural foramina: Multilevel spondylosis causing moderate bony spinal canal stenosis to 8 mm at the C5-6 level. Soft tissues: Unremarkable. Lung apices: Centrilobular emphysema. IMPRESSION: No acute findings in the cervical spine.
[2023-01-23] MEDS ORDERED: NOREPINEPHRINE 4 MG in SODIUM CHLORIDE 0.9% 250 ML IV SCH (03:00)
--- NOTE | 2023-01-23 03:08 | CT ---
ADDENDUM - Added by Derek Yung M.D. on 01/23/2023 3:19 AM (-08:00) Discussed with Dr. Hooker on 01/23 03:18 (-05:00) EXAM: CT Angiography Head With Intravenous Contrast CLINICAL HISTORY: ITS.REASON CT Reason: unwitnessed fall with LOC change TECHNIQUE: Axial computed tomographic angiography images of the head with intravenous contrast. CTDI is 4.8 mGy and DLP is 19 mGy-cm. This CT exam was performed using one or more of the following dose reduction techniques: automated exposure control, adjustment of the mA and/or kV according to patient size, and/or use of iterative reconstruction technique. MIP reconstructed images were created and reviewed. COMPARISON: No relevant prior studies available. FINDINGS: Right internal carotid artery: No acute findings. Intracranial segment is patent with no significant stenosis. No aneurysm. Right anterior cerebral artery: Unremarkable. No occlusion or significant stenosis. No aneurysm. Right middle cerebral artery: Unremarkable. No occlusion or significant stenosis. No aneurysm. Right posterior cerebral artery: Unremarkable. No occlusion or significant stenosis. No aneurysm. Right vertebral artery: Unremarkable as visualized. Left internal carotid artery: Occluded left ICA terminus. There is reconstitution of flow of the distal left M1 and left anterior cerebral arteries. No aneurysm. Left anterior cerebral artery: See above. Left middle cerebral artery: See above. Left posterior cerebral artery: Unremarkable. No occlusion or significant stenosis. No aneurysm. Left vertebral artery: Unremarkable as visualized. Basilar artery: Unremarkable. No occlusion or significant stenosis. No aneurysm. Other vasculature: Overall opacification of the arterial circulation is poor limiting evaluation. IMPRESSION: Occluded left ICA terminus. There is reconstitution of flow of the distal left M1 and left anterior cerebral arteries. EXAM: CT Angiography Neck With Intravenous Contrast CLINICAL HISTORY: ITS.REASON CT Reason: unwitnessed fall with LOC change TECHNIQUE: Routine carotid CT angiography protocol was performed with intravenous contrast. NASCET criteria using the distal ICAs for comparison were used for evaluation of stenoses. CTDI is 10.6 mGy and DLP is 465.2 mGy-cm. This CT exam was performed using one or more of the following dose reduction techniques: automated exposure control, adjustment of the mA and/or kV according to patient size, and/or use of iterative reconstruction technique. MIP reconstructed images were created and reviewed. COMPARISON: None. FINDINGS: VASCULATURE: Right common carotid artery: Mild calcified plaque within the distal right common carotid artery. No occlusion or significant stenosis. No dissection. Right internal carotid artery: Mild calcified plaque within the right carotid bulb and proximal right internal carotid artery without hemodynamically significant stenosis. No dissection. Right external carotid artery: Unremarkable. No occlusion. Right vertebral artery: Unremarkable. No occlusion or significant stenosis. No dissection. Left common carotid artery: Unremarkable. No occlusion or significant stenosis. No dissection. Left internal carotid artery: Occlusion of the left cervical internal carotid artery at the C1 level. Left external carotid artery: Unremarkable. No occlusion. Left vertebral artery: Unremarkable. No occlusion or significant stenosis. No dissection. Other vasculature: Overall opacification of the arterial circulation is poor limiting evaluation. NECK: Bones/joints: Unremarkable. No acute fracture. Soft tissues: Unremarkable. Lung apices: Severe centrilobular emphysema. CAROTID STENOSIS REFERENCE USING NASCET CRITERIA: % ICA stenosis = (1 - narrowest ICA diameter/diameter of distal cervical ICA) x 100. Mild - <50% stenosis. Moderate - 50-69% stenosis. Severe - 70-94% stenosis. Near occlusion - 95-99% stenosis. Occluded - 100% stenosis. IMPRESSION: Occlusion of the left cervical internal carotid artery at the C1 level. No hemodynamically significant right carotid stenosis. <MYCVCSECTION> Communications: 01/23/23 03:18 Call Doctor Regarding Stroke acute, subacute (but new), expanding, called Dr. Kandice Hooker on 01/23 03:18 (-05:00)
[2023-01-23 04:33] LABS: ALT 20 U/L (4-34); AST 33 U/L (14-36); African American GFR (CKD) >90 (>60 ml/min/1.73 sqM); Albumin 2.6 g/dL (3.5-5.0); Alkaline Phosphatase 80 U/L (38-126); Anion Gap 13 mmol/L; Blood Urea Nitrogen 12 mg/dL (7-17); Calcium 7.9 mg/dL (8.4-10.2); Carbon Dioxide 13 mmol/L (22-30); Chloride 113 mmol/L (98-107); Glucose 95 mg/dL (74-99); Non-African American GFR(CKD) 88 (>60 ml/min/1.73 sqM); Potassium 3.8 mmol/L (3.5-5.1); Sodium 139 mmol/L (137-145); Total Bilirubin 0.8 mg/dL (0.2-1.3); Total Protein 5.2 g/dL (6.3-8.2)
--- NOTE | 2023-01-23 04:35 | P.DS ---
Providers Date of admission: 01/21/23 10:42 Expected date of discharge: 01/23/23 Attending physician: Henry Perez Consults: 01/18/23 16:36 Consult Physician Routine Consulting Provider: Kandace Livingston Consult Reason/Comments: post op medical management Do you want consulting provider notified?: Yes 01/23/23 03:27 Consult Physician Stat Consulting Provider: Cortes Dexter Consult Reason/Comments: ICU care Do you want consulting provider notified?: Already Contacted 01/23/23 03:29 Consult Physician Stat Consulting Provider: Rodolfo Penaloza Consult Reason/Comments: Acute ischemic CVA Do you want consulting provider notified?: Yes Primary care physician: SUSIE Lewis Hospital Course: The patient is a 67-year-old female with a PMH of CAD status post stenting, carotid artery stenosis status post endarterectomy, A. fib on Eliquis, hypertension, hyperlipidemia, COPD, and polysubstance abuse who was admitted for a right total hip arthroplasty performed on 01/18/23. The patient's postoperative course was completed by postoperative blood loss anemia with hemoglobin 8.0. The patient was continued on her Eliquis home dose 2.5 mg po bid. At 2 AM on 01/23, the patient was found on the ground and minimally responsive. Her last known well was at around midnight where she was assisted to the bathroom and had requested to sit down in a chair in a reclined position. The patient was noted to have right-sided flaccid paralysis with right facial droop and left lateral fixed gaze with an NIH of 21. Code Stroke with activated and the patient was immediately taken for CT brain without contrast and CT antigram head and neck. CT brain and cervical spine did not reveal acute abnormalities. CT angiogram head and neck revealed an occlusion of the left cervical internal carotid artery at the C1 level. Case was discussed with neuro river expedition guide who recommended speaking to family with regards to possible transfer for mechanical thrombectomy in light of patient not being a candidate for TPA due to being on Eliquis. The patient's blood pressure throughout this episode was low with systolic 80s over 60s. Neuro river expedition guide also recommended increasing the patient's blood pressure to systolic goal of 120 to 140s with IV pressors. The case was immediately discussed with patient's daughter listed in the chart who noted that they wish for all measures to be taken including a possible mechanical thrombectomy. Transfer was initiated and case was discussed with neuro river expedition guide at [facility] Dr Suzy Sánchez who accepted the case. The patient will promptly be sent to [facility] via EMS. Family was notified. Primary team also notified. Physical Examination General: Well-appearing female, intermittent grimacing, appears stated age, normal weight HEENT: NC/AT, anicteric sclerae, moist conjunctiva, no lid-lag, PERRLA Cardiovascular: S1/S2 wnl, no murmurs, rubs, or gallops Lungs: Clear to auscultation, normal respiratory effort, no accessory muscle use Abdominal: Soft, non-tender, non-distended, no guarding, rebound, or rigidity Skin: Warm, dry Extremities: No edema or contractures Psychiatric: Awake, opens eyes to name but not following any commands Neuro: Moving left upper and lower extremities spontaneously with flaccid paralysis of the right side with a right facial droop and fixed left lateral gaze Discharge diagnosis: Acute left ICA occlusion, status post right total hip replacement, chronic conditions: CAD status post stenting, A. fib, hypertension, hyperlipidemia, COPD, polysubstance abuse A total of 60 minutes of time were spent preparing this complex discharge summary. Plan - Discharge Summary Discharge Rx Participant: No New Discharge Prescriptions: New HYDROcodone/APAP 5-325MG [Orange 5-325] 1 - 2 tab PO Q6HR PRN #32 tab PRN Reason: Pain Apixaban [Eliquis] 2.5 mg PO BID #60 tab Omeprazole 40 mg PO DAILY #30 cap Docusate [Colace] 100 mg PO BID #30 capsule Doxycycline Monohydrate 100 mg PO BID #30 cap Continue Promethazine [Phenergan] 25 mg PO Q8H PRN PRN Reason: Nausea FLUoxetine HCL [PROzac] 40 mg PO DAILY Nicotine 14Mg/24Hr Patch [Habitrol] 1 patch TRANSDERM DAILY patch Pantoprazole [Protonix] 40 mg PO DAILY Tiotropium [place] [Spiriva Handihaler] 18 mcg IH DAILY Cholecalciferol (Vitamin D3) [Vitamin D3 (125 MCG = 5,000 IU)] 125 mcg PO DAILY buPROPion SR [Wellbutrin SR] 200 mg PO BID traZODone HCL 50 mg PO HS Topiramate [Topamax] 50 mg PO DAILY OLANZapine [ZyPREXA] 5 mg PO HS Nitrofurantoin Monohyd/M-Cryst [Macrobid] 100 mg PO Q12HR Aspirin 81 mg PO DAILY Nitroglycerin Sl Tabs [Nitrostat] 0.4 mg SUBLINGUAL Q5M PRN PRN Reason: Chest Pain Albuterol Inhaler [Ventolin Hfa Inhaler] 1 - 2 puff INHALATION Q6H PRN PRN Reason: Shortness Of Breath Cyanocobalamin (Vitamin B-12) [Vitamin B-12] 1,000 mcg PO DAILY No Action HYDROcodone/APAP 7.5-325MG [Orange 7.5-325] 1 tab PO Q8H PRN PRN Reason: Pain Discharge Medication List FLUoxetine HCL [PROzac] 40 mg PO DAILY 02/04/21 [History] OLANZapine [ZyPREXA] 5 mg PO HS 02/04/21 [History] Promethazine [Phenergan] 25 mg PO Q8H PRN 02/04/21 [History] Topiramate [Topamax] 50 mg PO DAILY 02/04/21 [History] buPROPion SR [Wellbutrin SR] 200 mg PO BID 02/04/21 [History] traZODone HCL 50 mg PO HS 02/04/21 [History] Nicotine 14Mg/24Hr Patch [Habitrol] 1 patch TRANSDERM DAILY patch 02/05/21 [Rx] Albuterol Inhaler [Ventolin Hfa Inhaler] 1 - 2 puff INHALATION Q6H PRN 01/15/23 [History] Aspirin 81 mg PO DAILY 01/15/23 [History] Cholecalciferol (Vitamin D3) [Vitamin D3 (125 MCG = 5,000 IU)] 125 mcg PO DAILY 01/15/23 [History] Cyanocobalamin (Vitamin B-12) [Vitamin B-12] 1,000 mcg PO DAILY 01/15/23 [History] HYDROcodone/APAP 7.5-325MG [Orange 7.5-325] 1 tab PO Q8H PRN 01/15/23 [History] Nitrofurantoin Monohyd/M-Cryst [Macrobid] 100 mg PO Q12HR 01/15/23 [History] Nitroglycerin Sl Tabs [Nitrostat] 0.4 mg SUBLINGUAL Q5M PRN 01/15/23 [History] Pantoprazole [Protonix] 40 mg PO DAILY 01/15/23 [History] Tiotropium [place] [Spiriva Handihaler] 18 mcg IH DAILY 01/15/23 [History] Apixaban [Eliquis] 2.5 mg PO BID #60 tab 01/18/23 [Rx] Docusate [Colace] 100 mg PO BID #30 capsule 01/18/23 [Rx] HYDROcodone/APAP 5-325MG [Orange 5-325] 1 - 2 tab PO Q6HR PRN #32 tab 01/18/23 [Rx] Omeprazole 40 mg PO DAILY #30 cap 01/18/23 [Rx] Doxycycline Monohydrate 100 mg PO BID #30 cap 01/19/23 [Rx] Follow up Appointment(s)/Referral(s): Reji Bailon MD [Medical Doctor] - 1 Week [facility], [NON-STAFF] - As Needed Henry Perez MD [Medical Doctor] - 01/31/23 3:00 pm Activity/Diet/Wound Care/Special Instructions: 1. Weight-bear as tolerated on your operative extremity unless instructed otherwise. Use a walker or other assistive device to ambulate. 2. Leave surgical dressing in place. If your dressing becomes saturated with blood, there is drainage, or the dressing becomes loose please contact the office. 3. It is okay to shower with your surgical dressing, but do not submerge in water (no hot tubs, bath's, swimming etc.) 4. Make sure to take her blood clot prevention medication as prescribed (aspirin, Eliquis, Xarelto, and Plavix are commonly prescribed medications for blood clot prevention) 5. While taking Orange or Percocet for pain make sure you're taking a stool softener (Colace) and drink lots of water. 6. Keep all follow-up appointments as scheduled. You will usually be seen in 1-2 weeks following surgery. 7. Please contact the office with any questions or concerns [phone]
[2023-01-23 04:52] VITALS: BP 131/119; PULSE 94; RESP 20
[2023-01-23 05:03] LABS: Basophils % (A) 0 %; Eosinophils # (A) 0.1 k/uL (0-0.7); Eosinophils % (A) 1 %; Hypochromasia Marked; Lymphocytes # (A) 0.8 k/uL (1.0-4.8); Lymphocytes % (A) 14 %; MCH 32.4 pg (25.0-35.0); MCHC 31.3 g/dL (31.0-37.0); MCV 103.6 fL (80.0-100.0); Macrocytosis Slight; Monocytes # (A) 0.4 k/uL (0-1.0); Monocytes % (A) 6 %; Neutrophils # (A) 4.5 k/uL (1.3-7.7); Neutrophils % (A) 77 %; Platelet Count 298 k/uL (150-450); RBC 1.67 m/uL (3.80-5.40); RDW 13.1 % (11.5-15.5); WBC 5.9 k/uL (3.8-10.6)
[2023-01-23 05:12] LABS: HGB 5.4 gm/dL (11.4-16.0)
[2023-01-23 05:13] LABS: HCT 17.3 % (34.0-46.0)
[2023-01-23 05:27] LABS: Prothrombin Time 11.4 sec (10.0-12.5)
--- NOTE | 2023-01-23 05:52 | P.CNPUL ---
History of Present Illness Consult date: 01/23/23 Requesting physician: Kandice Hooker Reason for consult: other (Acute ischemic CVA, ICU management) Chief complaint: Altered mental status and right-sided weakness History of present illness: I am seeing this patient in new consultation today 01/23/2023 in the intensive care unit, as she was transferred for CVA-like symptoms earlier this morning. Patient is a 59-year-old female past medical history significant for carotid artery stenosis status post left carotid endarterectomy, coronary artery disease with previous coronary stents, atrial fibrillation maintained on Eliquis, hypertension, hyperlipidemia, COPD, polysubstance abuse, and osteoarthritis. Patient was admitted for an elective right hip total arthroplasty on 01/18/2023. Earlier this morning, around 2 AM, the patient was found down on the ground. No significant evidence of head trauma. She was on Eliquis. Last known well was 1 hour prior, she was previously assisted to the recliner. On presentation, the patient had significant mental status changes. She was noted to have left gaze deviation, aphasic, and significant right-sided hemiparesis. A code stroke was called. Initial NIH was scored at 21. Patient was taken down for stat CT of the brain and C-spine without contrast. Which did not show any intracranial hem orrhage or cervical spine fracture. A follow-up brain CTA did show an acute occlusion within the left cervical internal carotid artery at the level of C1. The neuro-interventionalists was involved, who recommended transfer for potential surgical intervention and/or mechanical thrombectomy. No TPA was given. Related to risks outweighing benefits. Patient is systemically anticoagulated and did have recent surgery. Patient was transferred to the intensive care unit for monitoring during the transfer process. Patient is currently hypotensive, status post 2 L normal saline bolus. She was started on norepinephrine per neuro interventional is recommendation to maintain systolic blood pressure goal of 120-140 mmHg. norepinephrine is currently infusing at 0.07 mcg/kg/m. most recent available CBC from 2 days ago showed a WBC count of 6.6, hemoglobin 8, hematocrit 25.8, platelets 277. Patient does have a component of acute blood loss anemia following surgery. BMP from earlier this morning shows sodium 139, potassium 3.8, chloride 113, serum bicarb 13, BUN 12, creatinine 0.71, glucose 95. Troponin less than 0.012. Multiple tertiary care centers were contacted for transfer. Transfer was ultimately initiated for [facility] physician, Dr. Hooker, did speak with the neuro-tape recorder repairer at the accepting facility. Review of Systems ROS unobtainable: due to mental status Past Medical History Past Medical History: Atrial Fibrillation, COPD, GERD/Reflux, Hyperlipidemia, Myocardial Infarction (DC), Osteoarthritis (OA), Pneumonia, Seizure Disorder Additional Past Medical History / Comment(s): currently being tx. for UTI by [facility] P[facility], last seizure 15 years ago secondary to etoh w/d. Last Myocardial Infarction Date:: 05/2016 History of Any Multi-Drug Resistant Organisms: None Reported Past Surgical History: Back Surgery, Heart Catheterization With Stent, Orthopedi c Surgery, Pacemaker Additional Past Surgical History / Comment(s): Back surgery for lumbar disc disease, Left leg surgery with gisel. Right hip arthroplasty. Left carotid end artectomy. Past Anesthesia/Blood Transfusion Reactions: No Reported Reaction Date of Last Stent Placement:: 05/2016 Type of Cardiac Device: Permanent Pacemaker Device Placement Date:: 08/2016 Past Psychological History: Anxiety, Bipolar, Depression Smoking Status: Former smoker Past Alcohol Use History: Abuse, Daily Additional Past Alcohol Use History / Comment(s): heavy drinking for 20 yrs., pint of vodka per day, had been sober 5 years, last bout of binge drinking about 2 weeks ago Past Drug Use History: Cocaine, Prescription Drug Abuse Additional Drug Use History / Comment(s): past drug use pt states was >15 years ago. - Past Family History Daughter(s) Additional Family Medical History / Comment(s): none Father Family Medical History: Unable to Obtain Mother Family Medical History: Hypertension Medications and Allergies Home Medications Medication Instructions Recorded Confirmed Type FLUoxetine HCL [PROzac] 40 mg PO DAILY 02/04/21 01/15/23 History OLANZapine [ZyPREXA] 5 mg PO HS 02/04/21 01/15/23 History Promethazine [Phenergan] 25 mg PO Q8H PRN 02/04/21 01/15/23 History Topiramate [Topamax] 50 mg PO DAILY 02/04/21 01/15/23 History buPROPion SR [Wellbutrin SR] 200 mg PO BID 02/04/21 01/15/23 History traZODone HCL 50 mg PO HS 02/04/21 01/15/23 History Nicotine 14Mg/24Hr Patch [Habitrol] 1 patch TRANSDERM DAILY patch 02/05/21 01/18/23 Rx Albuterol Inhaler [Ventolin Hfa 1 - 2 puff INHALATION Q6H PRN 01/15/23 01/18/23 History Inhaler] Aspirin 81 mg PO DAILY 01/15/23 01/18/23 History Cholecalciferol (Vitamin D3) 125 mcg PO DAILY 01/15/23 01/15/23 History [Vitamin D3 (125 MCG = 5,000 IU)] Cyanocobalamin (Vitamin B-12) 1,000 mcg PO DAILY 01/15/23 01/15/23 History [Vitamin B-12] HYDROcodone/APAP 7.5-325MG [Etlan 1 tab PO Q8H PRN 01/15/23 01/15/23 History 7.5-325] Nitrofurantoin Monohyd/M-Cryst 100 mg PO Q12HR 01/15/23 01/15/23 History [Macrobid] Nitroglycerin Sl Tabs [Nitrostat] 0.4 mg SUBLINGUAL Q5M PRN 01/15/23 01/15/23 History Pantoprazole [Protonix] 40 mg PO DAILY 01/15/23 01/15/23 History Tiotropium Schuyler [Spiriva 18 mcg IH DAILY 01/15/23 01/18/23 History Handihaler] Apixaban [Eliquis] 2.5 mg PO BID #60 tab 01/18/23 Rx Docusate [Colace] 100 mg PO BID #30 capsule 01/18/23 Rx HYDROcodone/APAP 5-325MG [Etlan 1 - 2 tab PO Q6HR PRN #32 tab 01/18/23 Rx 5-325] Omeprazole 40 mg PO DAILY #30 cap 01/18/23 Rx Doxycycline Monohydrate 100 mg PO BID #30 cap 01/19/23 Rx Allergies Allergy/AdvReac Type Severity Reaction Status Date / Time codeine AdvReac Itching Verified 01/18/23 11:57 Physical Exam Vitals: Vital Signs Temp Pulse Pulse Resp BP BP Pulse Ox 01/23/23 04:30 94 20 131/119 93 L 01/23/23 04:20 95 23 131/119 92 L 01/23/23 04:10 90 14 83/55 91 L 01/23/23 04:00 92 19 105/91 92 L 01/23/23 03:50 91 23 105/91 93 L 01/23/23 03:40 91 19 86/64 94 L 01/23/23 03:30 88 13 86/62 93 L 01/23/23 03:20 85 12 82/68 92 L 01/23/23 03:10 64 15 107/92 94 L 01/23/23 03:00 66 90 13 95/72 94 L 01/23/23 02:50 64 13 109/29 93 L 01/23/23 02:40 64 21 132/122 94 L 01/23/23 02:31 63 14 01/22/23 19:44 98.5 F 65 18 89/47 93 L 01/22/23 13:00 98.7 F 61 18 83/40 93 L 01/22/23 07:15 97.9 F 62 19 83/53 91 L Intake and Output 01/22/23 01/22/23 01/23/23 14:59 22:59 06:59 Intake Total 1011.417 Balance 1011.417 Intake: Intake, IV Titration 1011.417 Amount Norepinephrine 4 mg In 11.417 Sodium Chloride 0.9% 250 ml @ 0.03 MCG/KG/MIN 8. 527 mls/hr IV .Q24H [facility] Rx#:[id number] Sodium Chloride 0.9% 1, 1000 000 ml @ 999 mls/hr IV . Q1H1M [facility] Rx#:[id number] Other: Voiding Method Toilet Toilet External Catheter Bedside Commode Bedside Commode # Voids 2 2 1 Weight 78.9 kg GENERAL EXAM: Patient spontaneously opens eyes, does not follow commands, appears to have right-sided hemiparesis and left gaze deviation. HEAD: Normocephalic and atraumatic EYES: Normal reaction of pupils, equal size. NOSE: Clear with pink turbinates. THROAT: No erythema or exudates. NECK: No masses, no JVD. CHEST: No chest wall deformity. LUNGS: Equal air entry with no crackles, wheeze, rhonchi or dullness. On room air. No conversational dyspnea or accessory muscle use.. CVS: S1 and S2 normal with no audible murmur, regular rhythm. No extra heart sounds ABDOMEN: No hepatosplenomegaly, active bowel sounds, no guarding or rigidity. SPINE: No scoliosis or deformity SKIN: No rashes CENTRAL NERVOUS SYSTEM: No focal deficits, tone is normal in all 4 extremities. EXTREMITIES: Postsurgical right hip, incision approximated. There is no peripheral edema, clubbing, or cyanosis. Peripheral pulses are intact. Results - Laboratory Findings CBC and BMP: 01/23/23 04:01 01/23/23 04:01 Abnormal lab findings: Abnormal Labs 01/19/23 01/19/23 01/20/23 04:19 06:43 05:27 RBC 2.59 L 2.62 L Hgb 8.2 L 8.3 L Hct 26.5 L 26.4 L MCV 102.3 H 101.0 H MCHC 30.9 L MPV 9.0 L Eosinophils # 0 L Sodium Chloride 110 H Carbon Dioxide 21 L POC Glucose (mg/dL) Calcium AST Total Protein Albumin 01/20/23 01/21/23 01/23/23 05:27 05:39 01:53 RBC 2.54 L Hgb 8.0 L Hct 25.8 L MCV 101.6 H MCHC 31.0 L MPV 9.4 L Eosinophils # Sodium 136 L Chloride 108 H Carbon Dioxide 21 L POC Glucose (mg/dL) 120 H Calcium 8.2 L AST 47 H Total Protein 5.3 L Albumin 2.8 L 01/23/23 01/23/23 02:31 04:01 RBC Hgb Hct MCV MCHC MPV Eosinophils # Sodium Chloride 113 H Carbon Dioxide 13 L POC Glucose (mg/dL) 130 H Calcium 7.9 L AST Total Protein 5.2 L Albumin 2.6 L Assessment and Plan Assessment: Acute ischemic CVA, brain CTA did show an acute occlusion within the left cervical internal carotid artery at the level of C1. The neuro- interventionalists was involved, who recommended transfer for potential surgical intervention. Risks were felt to outweigh benefit for thrombolytics. Status/post right total hip arthroplasty on 01/18/2023 Postoperative acute blood loss anemia, secondary to above Hypovolemic shock, secondary to above, requiring vasopressors in the form of norepinephrine History of proximal atrial fibrillation, chronically anticoagulated on Eliquis Fall History of carotid artery stenosis status post previous left carotid enterectomy Coronary artery disease with previous coronary stents Hyperlipidemia History of hypertension History of COPD History of polysubstance abuse Plan: Patient is suspected to have acute ischemic CVA, neuro-interventionalists recommended transfer to tertiary care facility. [facility]. Patient not a candidate for pharmacologic thrombolysis related to recent surgery and systemic anticoagulation. Patient's blood pressure was hypotensive on transfer to the ICU, and has received a 2 L normal saline bolus. Neuro- interventionalist recommended systolic blood pressure between 120 and 140 mmHg. She was started on norepinephrine, which is currently infusing at 0.07 mcg/kg/m. Following the transfer, patient's hemoglobin finally resulted at 5.4 g/dL. Accepting facility was notified, will arrange PRBC transfusion at tertiary [facility] facility on arrival. Sound physician, Dr. Hooker, did speak to accepting physician. I have personally seen and examined the patient, performed the documentation and the assessment and plan as written. Number of minutes spent on the visit:20 This patient was not personally seen. The patient is transferred to another facility prior to my arrival to the hospital. The workup was done in collaboration with the nurse practitioner. Time with Patient: Greater than 30
== END 2023-01-23 07:00 | disposition short-term general hospital (02) | DRG 469 ==
LOC: OR 11:24 → 4SSUR 16:21 → OR 01-21 10:42 → OBSVTOIN 01-21 10:42 → 4SSUR 01-21 10:42 → 2SICU 01-23 02:54
PROVIDERS: ADMIT Orthopaedic Surgery; ATTEND Orthopaedic Surgery
PROC: 0SR9029 Replacement of Right Hip Joint with Metal on Polyethylene Synthetic Substitute, Cemented, Open Approach (ICD-10-PCS; principal; 2023-01-18 13:10)
PROC: 3E033XZ Introduction of Vasopressor into Peripheral Vein, Percutaneous Approach (ICD-10-PCS; 2023-01-23)
DX: M16.11 Unilateral primary osteoarthritis, right hip (principal); I63.232 Cerebral infarction due to unspecified occlusion or stenosis of left carotid arteries; R57.1 Hypovolemic shock; D62 Acute posthemorrhagic anemia; R47.01 Aphasia; G81.01 Flaccid hemiplegia affecting right dominant side; N39.0 Urinary tract infection, site not specified; I25.10 Atherosclerotic heart disease of native coronary artery without angina pectoris; M85.80 Other specified disorders of bone density and structure, unspecified site; R29.721 NIHSS score 21; I10 Essential (primary) hypertension; E78.5 Hyperlipidemia, unspecified; J44.9 Chronic obstructive pulmonary disease, unspecified; F10.10 Alcohol abuse, uncomplicated; E87.8 Other disorders of electrolyte and fluid balance, not elsewhere classified; I48.0 Paroxysmal atrial fibrillation; F14.11 Cocaine abuse, in remission; F19.10 Other psychoactive substance abuse, uncomplicated; F31.9 Bipolar disorder, unspecified; K21.9 Gastro-esophageal reflux disease without esophagitis; G40.909 Epilepsy, unspecified, not intractable, without status epilepticus; Z87.891 Personal history of nicotine dependence; Z11.52 Encounter for screening for COVID-19; Z95.5 Presence of coronary angioplasty implant and graft; Z79.01 Long term (current) use of anticoagulants; Z79.899 Other long term (current) drug therapy; Z79.82 Long term (current) use of aspirin; Z88.5 Allergy status to narcotic agent; Z87.01 Personal history of pneumonia (recurrent); I25.2 Old myocardial infarction; Z95.0 Presence of cardiac pacemaker
CPT/HCPCS: 64447; 70450; 70496; 70498; 72125; 73501; 80048; 80053; 84484; 85025; 85610; 85730; 87635; 94640; 94760